=== PATIENT | male | born 1985 | race Two or more races ===

== ENCOUNTER 2018-07-29 13:37 | Emergency (ER) | payer OTHER, MEDICARE ==
[2018-07-29] MEDS ORDERED: NORMAL SALINE 1000 ML 1,000 ML IV ONE (14:17)
[2018-07-29] MEDS ORDERED: KETOROLAC TROMETHAMINE INJ/PF 30 MG/1 ML SDV IV ONE (14:18)
[2018-07-29] MEDS ORDERED: ONDANSETRON HCL INJ/PF 4 MG/2 ML SDV IV ONE (14:18)
[2018-07-29] MEDS ORDERED: MORPHINE SULFATE 10 MG/ML INJ IV ONE (14:18)
--- NOTE | 2018-07-29 14:21 | ER Document Report ---
ED General - General Chief Complaint: Flank Pain Stated Complaint: FLANK PAIN Time Seen by Provider: 07/29/18 14:13 TRAVEL OUTSIDE OF THE U.S. IN LAST 30 DAYS: No - HPI Notes: Patient is a 32-year-old male that presents to the emergency department for chief complaint of right flank pain. Patient started having pain in his right flank on 07/25/18, after few hours the pain had completely resolved. The pain returned today lower on his right side. He states it is sharp. He denies aggravating or relieving factors. He does have a history of kidney stones and states this feels similar. He reports uri nary frequency but denies dysuria and hematuria. He does also have some associated nausea but denies vomiting. He denies any new injury or trauma. He states the pain is sharp and radiating from his right side into his right lower groin. Past Medical History: PTSD, depression, restless leg syndrome, pseudotumor cerebri Past Surgical History: Reviewed in chart Social History: Vaporized nicotine, denies drug and alcohol use Family History: Reviewed and noncontributory for presenting illness Allergies: Reviewed, see documented allergy list. REVIEW OF SYSTEMS: CONSTITUTIONAL : No fever No chills No diaphoresis No recent illness EENT: No vision changes No congestion No sore throat CARDIOVASCULAR: No chest pain No palpitations RESPIRATORY: No shortness of breath No cough No difficulty breathing GASTROINTESTINAL: abdominal pain nausea No vomiting No diarrhea GENITOURINARY: No dysuria Urinary frequency No hematuria No difficulty urinating MUSCULOSKELETAL: No back pain No leg pain No arm pain SKIN: No rashes No lesions LYMPHATIC: No swollen, enlarged glands. NEUROLOGICAL: No lightheadedness No headache No weakness No paresthesias PSYCHIATRIC: No anxiety No depression PHYSICAL EXAMINATION: Vital signs reviewed, nursing noted reviewed. GENERAL: Well-appearing, well-nourished and in no acute distress. HEAD: Atraumatic, normocephalic. EYES: Eyes appear normal, extraocular movements intact, sclera anicteric, conjunctiva are normal. ENT: nares patent, oropharynx clear without exudates. Moist mucous membranes. NECK: Normal range of motion, supple without lymphadenopathy LUNGS: Breath sounds clear to auscultation bilaterally and equal. No wheezes rales or rhonchi. HEART: Regular rate and rhythm without murmurs ABDOMEN: Right CVA tenderness, soft, nontender, normoactive bowel sounds. No rebound, guarding, or rigidity. No masses appreciated. EXTREMITIES: Nontender, good range of motion, no pitting or edema. NEUROLOGICAL: No focal neurological deficits. Moves all extremities spontaneously Motor and sensory grossly intact on exam. PSYCH: Normal mood, normal affect. SKIN: Warm, Dry, normal turgor, no rashes or lesions noted on exposed skin - Related Data Allergies/Adverse Reactions: trazodone Allergy (Verified 07/29/18 14:13) Past Medical History - Social History Smoking Status: Current Some Day Smoker Family History: Reviewed & Not Pertinent Patient has suicidal ideation: No Patient has homicidal ideation: No - Past Medical History Cardiac Medical History: Reports: Hx Hypertension Neurological Medical History: Reports: Hx Migraine Renal/ Medical History: Denies: Hx Peritoneal Dialysis GI Medical History: Reports: Hx Gastroesophageal Reflux Disease Psychiatric Medical History: Reports: Hx Depression Past Surgical History: Reports: Hx Appendectomy, Hx Oral Surgery - Immunizations Hx Diphtheria, Pertussis, Tetanus Vaccination: Yes Physical Exam - Vital signs Vitals: Temp Pulse Resp BP Pulse Ox 97.2 F 68 20 158/96 H 100 07/29/18 13:39 07/29/18 13:39 07/29/18 13:39 07/29/18 13:39 07/29/18 13:39 Course - Re-evaluation Re-evalutation: 07/29/18 14:20 Vitals reviewed. Nursing notes reviewed. Patient given IV hydration, Toradol, morphine and Zofran for symptomatic management. 07/29/18 16:48 Laboratory 07/29/18 07/29/18 07/29/18 14:50 14:50 16:20 WBC 14.5 H RBC 5.43 Hgb 16.3 Hct 47.0 MCV 87 MCH 30.1 MCHC 34.8 RDW 13.3 Plt Count 267 Seg Neutrophils % 78.4 H Lymphocytes % 13.7 Monocytes % 6.6 Eosinophils % 0.4 Basophils % 0.9 Absolute Neutrophils 11.4 H Absolute Lymphocytes 2.0 Absolute Monocytes 1.0 Absolute Eosinophils 0.1 Absolute Basophils 0.1 Sodium 142.5 Potassium 4.1 Chloride 106 Carbon Dioxide 26 Anion Gap 11 BUN 11 Creatinine 0.91 Est GFR ( Amer) > 60 Est GFR (Non-Af Amer) > 60 Glucose 114 H Calcium 9.5 Urine Color YELLOW Urine Appearance CLEAR Urine pH 5.0 Ur Specific [place] 1.014 Urine Protein NEGATIVE Urine Glucose (UA) NEGATIVE Urine Ketones NEGATIVE Urine Blood LARGE H Urine Nitrite NEGATIVE Urine Bilirubin NEGATIVE Urine Urobilinogen NEGATIVE Ur Leukocyte Esterase NEGATIVE Urine WBC (Auto) 2 Urine RBC (Auto) 16 U Hyaline Cast (Auto) 1 Squamous Epi Cells Auto <1 Urine Mucus (Auto) MANY Urine Ascorbic Acid 20 H Abdomen/Pelvis CT 07/29/18 14:14 IMPRESSION: Right hydronephrosis and hydroureter secondary to the presence of a 6 mm calculus 2 cm from the right UVJ. Patient workup patient's workup shows a 6 mm ureterolithiasis on the right. He does have some hydronephrosis but has normal renal function. There is no sign of overlying infection. Patient will be given Flomax, urine strainer, naproxen and Percocet. He will follow closely with urology. He will return for new or worsening symptoms. He is stable and improved at discharge. - Vital Signs Vital signs: Temp Pulse Resp BP Pulse Ox 97.2 F 68 20 158/96 H 100 07/29/18 13:39 07/29/18 13:39 07/29/18 13:39 07/29/18 13:39 07/29/18 13:39 - Laboratory Result Diagrams: 07/29/18 14:50 07/29/18 14:50 Laboratory results interpreted by me: 07/29/18 07/29/18 07/29/18 14:50 14:50 16:20 WBC 14.5 H Seg Neutrophils % 78.4 H Absolute Neutrophils 11.4 H Glucose 114 H Urine Blood LARGE H Urine Ascorbic Acid 20 H Discharge - Discharge Clinical Impression: Ureterolithiasis Condition: Stable Disposition: HOME, SELF-CARE Instructions: Kidney Stone ([facility]) Additional Instructions: Please return to the emergency department if you have any worsening, or concern of your symptoms. Please return to the emergency department if you develop chest pain, difficulty breathing, severe abdominal pain, or ongoing vomiting. Please follow-up with your primary care physician in 2-3 days and any other recommended physicians. If prescribed, take all medications as directed. If you have any questions or concerns do not hesitate to return the emergency department for evaluation. Stay well-hydrated Follow with urology for close reevaluation Prescriptions: Naproxen 500 mg PO BID #30 tablet.dr Oxycodone HCl/Acetaminophen [Percocet 5-325 mg Tablet] 1 tab PO Q6 PRN #10 tab PRN Reason: Pain Tamsulosin HCl [Flomax 0.4 mg Cap.sr] 0.4 mg PO DAILY #7 cap.sr.24h Referrals: MARCELLA PARHAM MD [Primary Care Provider] - Follow up as needed [facility] [Provider Group] - Follow up in 3-5 days
[2018-07-29 14:55] LABS: ABSOLUTE BASOPHILS # (AUTO) 0.1 10^3/uL (0.0-0.2); ABSOLUTE EOSINOPHILS # (AUTO) 0.1 10^3/uL (0.0-0.6); ABSOLUTE NEUT (AUTO) 11.4 10^3/uL (1.7-8.2); BASOPHILS % (AUTO) 0.9 % (0-2); EOSINOPHILS % (AUTO) 0.4 % (0-6); HEMOGLOBIN 16.3 g/dL (13.5-17.0); LYMPHOCYTES % (AUTO) 13.7 % (13-45); MEAN CORPUSCULAR HEMOGLOBIN 30.1 pg (27.0-33.4); MEAN CORPUSCULAR HGB CONC 34.8 g/dL (32.0-36.0); MEAN CORPUSCULAR VOLUME 87 fl (80-97); MONOCYTES % (AUTO) 6.6 % (3-13); PLATELET COUNT 267 10^3/uL (150-450); RED BLOOD COUNT 5.43 10^6/uL (4.35-5.55); RED CELL DISTRIBUTION WIDTH 13.3 % (11.5-14.0); SEGMENTED NEUTROPHILS % (AUTO) 78.4 % (42-78); TOTAL CELLS COUNTED % (AUTO) 100 %; WHITE BLOOD COUNT 14.5 10^3/uL (4.0-10.5)
[2018-07-29 15:15] LABS: ANION GAP 11 (5-19); BLOOD UREA NITROGEN 11 mg/dL (7-20); CALCIUM 9.5 mg/dL (8.4-10.2); CARBON DIOXIDE 26 mmol/L (22-30); CHLORIDE 106 mmol/L (98-107); GLUCOSE 114 mg/dL (75-110); POTASSIUM 4.1 mmol/L (3.6-5.0); SODIUM 142.5 mmol/L (137-145)
--- NOTE | 2018-07-29 15:24 | RADIOLOGY REPORT (SQ) ---
EXAM DESCRIPTION: CT ABD/PELVIS NO ORAL OR IV COMPLETED DATE/TIME: 07/29/2018 3:10 pm REASON FOR STUDY: flank pain COMPARISON: 08/18/2010 TECHNIQUE: CT scan of the abdomen and pelvis performed without intravenous or oral contrast. Images reviewed with lung, soft tissue, and bone windows. Reconstructed coronal and sagittal MPR images revi ewed. All images stored on PACS. All CT scanners at this facility use dose modulation, iterative reconstruction, and/or weight based d osing when appropriate to reduce radiation dose to as low as reasonably achievable (ALARA). [facility]: Dose Right [facility]: CareDose [facility]: Dose Right [facility]: Teradose 4D [facility]: [employer] RADIATION DOSE: mGy. LIMITATIONS: None. FINDINGS: LOWER CHEST: No significant findings. No nodules or infiltrates. NON-CONTRASTED LIVER, SPLEEN, ADRENALS: Evaluation limited by lack of IV contrast. No identified sign ificant masses. PANCREAS: No masses. No peripancreatic inflammatory changes. GALLBLADDER: No gallstones. No pericholecystic fluid. RIGHT KIDNEY AND URETER: Right hydronephrosis and hydroureter secondary to a 6 mm calculus in the dis ras ureter about 2 cm from the UVJ. LEFT KIDNEY AND URETER: No suspicious masses. Assessment limited by lack of IV contrast. No signifi cant calcifications. No hydronephrosis or hydroureter. AORTA AND RETROPERITONEUM: No aneurysm. No retroperitoneal masses or adenopathy. BOWEL AND PERITONEAL CAVITY: No obvious masses or inflammatory changes. No free fluid. APPENDIX: Normal. PELVIS, BLADDER, AND ABDOMINAL WALL:No abnormal masses. No free fluid. Bladder normal. BONES: No significant findings. OTHER: No other significant finding. IMPRESSION: Right hydronephrosis and hydroureter secondary to the presence of a 6 mm calculus 2 cm f rom the right UVJ. COMMENT: Quality ID # [id number]: Final reports with documentation of one or more dose reduction techniques (e.g., Automated exposure control, adjustment of the mA and/or kV according to patient size, use of iterative reconstruction technique) TECHNICAL DOCUMENTATION: JOB ID: [id number] [employer]- All Rights Reserved Reading location - IP/workstation name: [email or web address]
[2018-07-29] MEDS ORDERED: TAMSULOSIN HCL 0.4 MG CAP.SR.24H PO ONE (16:39)
[2018-07-29 16:46] LABS: APPEARANCE,URINE CLEAR; BILIRUBIN,URINE NEGATIVE (NEGATIVE); COLOR,URINE YELLOW; GLUCOSE, URINE NEGATIVE (NEGATIVE); KETONES,URINE NEGATIVE (NEGATIVE); LEUKOCYTE ESTERASE,URINE NEGATIVE (NEGATIVE); NITRITE,URINE NEGATIVE (NEGATIVE); PROTEIN,URINE NEGATIVE (NEGATIVE); URINE SPECIFIC GRAVITY 1.014; UROBILINOGEN,URINE NEGATIVE mg/dL (<2.0)
[2018-07-29 17:44] VITALS: BP 128/66
== END 2018-07-29 17:39 | disposition home or self-care (01) ==
LOC: ER 13:37
DX: N13.2 Hydronephrosis with renal and ureteral calculous obstruction (principal); R35.0 Frequency of micturition; R10.9 Unspecified abdominal pain; R11.0 Nausea; I10 Essential (primary) hypertension; F17.200 Nicotine dependence, unspecified, uncomplicated; Z88.8 Allergy status to other drugs, medicaments and biological substances
CPT/HCPCS: 99284; 96361; 96374; 96375; 36415; 85025; 80048; 81001; 74176; J1885; J2270; J2405; J7030

== ENCOUNTER 2018-08-04 11:36 | Emergency (ER) | payer OTHER, MEDICARE ==
[2018-08-04] MEDS ORDERED: ONDANSETRON HCL INJ/PF 4 MG/2 ML SDV IV ONE (11:55)
[2018-08-04] MEDS ORDERED: KETOROLAC TROMETHAMINE INJ/PF 30 MG/1 ML SDV IV ONE (11:55)
[2018-08-04] MEDS ORDERED: NORMAL SALINE 1000 ML 1,000 ML IV ONE (12:18)
--- NOTE | 2018-08-04 12:28 | ER Document Report ---
ED General - General Chief Complaint: Possible Kidney Stone Stated Complaint: FLANK PAIN Time Seen by Provider: 08/04/18 11:44 Notes: Patient is a 32-year-old male with kidney stone history and recent diagnosis of 1 that presents to the emergency department for chief complaint of right flank pain. Patient states that he was diagnosed with a ureteral stone about a week ago, and was doing okay at home, take medications as directed, but the pain flared up and got severe this morning so he decided to come back to the emergency department. He currently rates his pain as a 9 out of 10, describes as constant aching sensation with associated nausea on the right flank radiating towards the groin. He denies having any blood in the urine, or having any dysuria associated with this. He also denies having any fevers, chills, night sweats, chest pain or shortness of breath. Past Medical History: Kidney stones, pseudotumor cerebri, PTSD, restless leg syndrome Past Surgical History: Ureteral stenting, radiofrequency ablation Social History: Denies tobacco use, admits to rare alcohol use, denies illicit drug use. Family History: Reviewed and noncontributory for presenting illness Allergies: Reviewed, see documented allergy list. REVIEW OF SYSTEMS: Other than noted above, the 12 point review of systems was reviewed with the patient and were negative, all pertinent findings are included in the HPI. PHYSICAL EXAMINATION: Vital signs reviewed, nursing noted reviewed. GENERAL: Obese male, appears uncomfortable and in pain on exam, holding his right side HEAD: Atraumatic, normocephalic. EYES: Eyes appear normal, extraocular movements intact, sclera anicteric, conjunctiva are normal. ENT: nares patent, oropharynx clear without exudates. Moist mucous membranes. NECK: Normal range of motion, supple without lymphadenopathy LUNGS: Breath sounds clear to auscultation bilaterally and equal. No wheezes rales or rhonchi. HEART: Regular rate and rhythm without murmurs ABDOMEN: Soft, right CVA tenderness with palpation, normoactive bowel sounds. No rebound, guarding, or rigidity. No masses appreciated. EXTREMITIES: Nontender, good range of motion, no pitting or edema. NEUROLOGICAL: No focal neurological deficits. Moves all extremities spontaneously Motor and sensory grossly intact on exam. PSYCH: Appears uncomfortable, but appropriate. SKIN: Warm, Dry, normal turgor, no rashes or lesions noted on exposed skin TRAVEL OUTSIDE OF THE [place] IN LAST 30 DAYS: No - Related Data Allergies/Adverse Reactions: trazodone Allergy (Verified 08/04/18 11:37) Past Medical History - Social History Smoking Status: Current Every Day Smoker Frequency of alcohol use: Rare Drug Abuse: None Family History: Reviewed & Not Pertinent Patient has suicidal ideation: No Patient has homicidal ideation: No - Past Medical History Cardiac Medical History: Reports: Hx Hypertension Neurological Medical History: Reports: Hx Migraine Renal/ Medical History: Reports: Hx Kidney Stones. Denies: Hx Peritoneal Dialysis GI Medical History: Reports: Hx Gastroesophageal Reflux Disease Psychiatric Medical History: Reports: Hx Depression Past Surgical History: Reports: Hx Appendectomy, Hx Oral Surgery - Immunizations Hx Diphtheria, Pertussis, Tetanus Vaccination: Yes Physical Exam - Vital signs Vitals: Temp Pulse Resp BP Pulse Ox 98.0 F 76 18 140/70 H 99 08/04/18 11:41 08/04/18 11:41 08/04/18 11:41 08/04/18 11:41 08/04/18 11:41 Course - Re-evaluation Re-evalutation: Patient seen and examined vital signs reviewed. Laboratory data and imaging were ordered as appropriate for the patient's presenting symptoms and complaint, with consideration of any critical or life threatening conditions that may be associated with their obtained history and exam as noted above. Patient was treated with IV fluids, Toradol, morphine and Zofran Results were reviewed when available and demonstrated ureteral stone, at the UVJ, extending into the bladder, about to enter the bladder, with mild and unchanged hydroureter and hydronephrosis, renal function normal, UA negative for evidence of infection, hematuria present. The patient was re-evaluated and was still uncomfortable, he is given a dose of 1 mg of Dilaudid, to help assist further with his pain, will discharge the patient home and have him follow-up with urology, additionally advised to take previously prescribed Flomax, he was given a dose in the ED. Evaluation was most consistent with right ureteral stone, hematuria, hydronephrosis Results were discussed with the patient at this point, after careful consideration I feel that that patient can be discharged from the emergency department, the patient was educated treatments and reasons to return to the emergency department based on their presumed diagnosis as noted above, they were advised to followup with a primary care physician in 2-3 days. Patient was agreeable to plan of care. *Note is created using voice recognition software and may contain spelling, syntax or grammatical errors. Laboratory 08/04/18 08/04/18 08/04/18 12:30 12:45 12:45 WBC 12.9 H RBC 4.88 Hgb 14.9 Hct 42.5 MCV 87 MCH 30.6 MCHC 35.1 RDW 13.7 Plt Count 266 Seg Neutrophils % 77.1 Lymphocytes % 13.8 Monocytes % 8.3 Eosinophils % 0.4 Basophils % 0.4 Absolute Neutrophils 10.0 H Absolute Lymphocytes 1.8 Absolute Monocytes 1.1 Absolute Eosinophils 0.1 Absolute Basophils 0.1 Sodium 139.6 Potassium 4.5 Chloride 105 Carbon Dioxide 25 Anion Gap 10 BUN 15 Creatinine 0.91 Est GFR ( Amer) > 60 Est GFR (Non-Af Amer) > 60 Glucose 89 Calcium 9.8 Urine Color STRAW Urine Appearance CLEAR Urine pH 6.0 Ur Specific [place] 1.012 Urine Protein NEGATIVE Urine Glucose (UA) NEGATIVE Urine Ketones NEGATIVE Urine Blood MODERATE H Urine Nitrite NEGATIVE Urine Bilirubin NEGATIVE Urine Urobilinogen NEGATIVE Ur Leukocyte Esterase NEGATIVE Urine WBC (Auto) 0 Urine RBC (Auto) 47 Urine Mucus (Auto) RARE Urine Ascorbic Acid NEGATIVE Abdomen/Pelvis CT 08/04/18 11:55 IMPRESSION: Redemonstrated 6 mm calculus which is distally migrated compared to prior examination, now just at the ostium of the ureter at the ureterovesicular junction, with unchanged mild associated right hydronephrosis and hydroureter. - Vital Signs Vital signs: Temp Pulse Resp BP Pulse Ox 98.0 F 76 18 140/70 H 99 08/04/18 11:41 08/04/18 11:41 08/04/18 11:41 08/04/18 11:41 08/04/18 11:41 - Laboratory Result Diagrams: 08/04/18 12:45 08/04/18 12:45 Laboratory results interpreted by me: 08/04/18 08/04/18 12:30 12:45 WBC 12.9 H Absolute Neutrophils 10.0 H Urine Blood MODERATE H Discharge - Discharge Clinical Impression: Ureteral stone Hematuria Qualifiers: Hematuria type: unspecified type Qualified Code(s): R31.9 - Hematuria, unspecified Hydronephrosis Qualifiers: Hydronephrosis type: with ureteral calculous obstruction Qualified Code(s): N13.2 - Hydronephrosis with renal and ureteral calculous obstruction Condition: Stable Disposition: HOME, SELF-CARE Instructions: Kidney Stone ([facility]) Additional Instructions: Please follow-up with your urologist, if you are not able to get into see them, I provided a list of urologists in the area that you can call. Please take the Flomax even previously prescribed, daily, and only take the pain pill as needed every 8 hours for breakthrough type pain, otherwise you should take [id number] Motrin 600 mg 3 times daily, if you have nausea you can take the Zofran that was prescribed. [email or web address] [address] [email or web address] [facility] Kory De La Rosa [facility] [email or web address] [facility] Prescriptions: Ondansetron [Zofran Odt 4 mg Tablet] 1 tab PO Q8H PRN #15 tab.rapdis PRN Reason: For Nausea/Vomiting Oxycodone HCl/Acetaminophen [Percocet 5-325 mg Tablet] 1 tab PO Q8H PRN #15 tab PRN Reason: right flank pain Referrals: MARCELLA PARHAM MD [RN DERMATOLOGY] - Follow up in 3-5 days
[2018-08-04] MEDS ORDERED: MORPHINE SULFATE 10 MG/ML INJ IV ONE (12:30)
--- NOTE | 2018-08-04 12:43 | RADIOLOGY REPORT (SQ) ---
EXAM DESCRIPTION: CT ABD/PELVIS NO ORAL OR IV COMPLETED DATE/TIME: 08/04/2018 12:18 pm REASON FOR STUDY: right side nephrolithiasis COMPARISON: 07/29/2018 TECHNIQUE: CT scan of the abdomen and pelvis performed without intravenous or oral contrast. Images reviewed with lung, soft tissue, and bone windows. Reconstructed coronal and sagittal MPR images revi ewed. All images stored on PACS. All CT scanners at this facility use dose modulation, iterative reconstruction, and/or weight based d osing when appropriate to reduce radiation dose to as low as reasonably achievable (ALARA). [facility]: Dose Right [facility]: CareDose [facility]: Dose Right [facility]: Teradose 4D [facility]: [employer] RADIATION DOSE: CT Rad equipment meets quality standard of care and radiation dose reduction techniq ues were employed. CTDIvol: 20.4 mGy. DLP: 1126 mGy-cm.mGy. LIMITATIONS: None. FINDINGS: LOWER CHEST: No significant findings. No nodules or infiltrates. NON-CONTRASTED LIVER, SPLEEN, ADRENALS: Evaluation limited by lack of IV contrast. No identified sign ificant masses. PANCREAS: No masses. No peripancreatic inflammatory changes. GALLBLADDER: No identified stones by CT criteria. No inflammatory changes to suggest cholecystitis. RIGHT KIDNEY AND URETER: No suspicious masses. Assessment limited by lack of IV contrast. Redemonst rated 6 mm calculus which is distally migrated compared to prior examination, now just at the ostium of the ureter at the ureterovesicular junction, with unchanged mild associated right hydronephrosis a nd hydroureter. LEFT KIDNEY AND URETER: No suspicious masses. Assessment limited by lack of IV contrast. No signifi cant calcifications. No hydronephrosis or hydroureter. AORTA AND RETROPERITONEUM: No aneurysm. No retroperitoneal masses or adenopathy. BOWEL AND PERITONEAL CAVITY: No obvious masses or inflammatory changes. No free fluid. APPENDIX: Normal. PELVIS, BLADDER, AND ABDOMINAL WALL:No abnormal masses. No free fluid. Bladder normal. BONES: No significant findings. OTHER: No other significant finding. IMPRESSION: Redemonstrated 6 mm calculus which is distally migrated compared to prior examination, n ow just at the ostium of the ureter at the ureterovesicular junction, with unchanged mild associated right hydronephrosis and hydroureter. COMMENT: Quality ID # [id number]: Final reports with documentation of one or more dose reduction techniques (e.g., Automated exposure control, adjustment of the mA and/or kV according to patient size, use of iterative reconstruction technique) TECHNICAL DOCUMENTATION: JOB ID: [id number] [employer]- All Rights Reserved Reading location - IP/workstation name: [email or web address]
[2018-08-04] MEDS ORDERED: TAMSULOSIN HCL 0.4 MG CAP.SR.24H PO ONE (12:49)
[2018-08-04 13:01] LABS: ABSOLUTE BASOPHILS # (AUTO) 0.1 10^3/uL (0.0-0.2); ABSOLUTE EOSINOPHILS # (AUTO) 0.1 10^3/uL (0.0-0.6); ABSOLUTE LYMPHOCYTES (AUTO) 1.8 10^3/uL (0.5-4.7); ABSOLUTE MONOCYTES (AUTO) 1.1 10^3/uL (0.1-1.4); BASOPHILS % (AUTO) 0.4 % (0-2); EOSINOPHILS % (AUTO) 0.4 % (0-6); HEMATOCRIT 42.5 % (37.9-51.0); HEMOGLOBIN 14.9 g/dL (13.5-17.0); LYMPHOCYTES % (AUTO) 13.8 % (13-45); MEAN CORPUSCULAR HEMOGLOBIN 30.6 pg (27.0-33.4); MEAN CORPUSCULAR HGB CONC 35.1 g/dL (32.0-36.0); MEAN CORPUSCULAR VOLUME 87 fl (80-97); MONOCYTES % (AUTO) 8.3 % (3-13); PLATELET COUNT 266 10^3/uL (150-450); RED BLOOD COUNT 4.88 10^6/uL (4.35-5.55); RED CELL DISTRIBUTION WIDTH 13.7 % (11.5-14.0); SEGMENTED NEUTROPHILS % (AUTO) 77.1 % (42-78); TOTAL CELLS COUNTED % (AUTO) 100 %; WHITE BLOOD COUNT 12.9 10^3/uL (4.0-10.5)
[2018-08-04 13:05] LABS: APPEARANCE,URINE CLEAR; BILIRUBIN,URINE NEGATIVE (NEGATIVE); COLOR,URINE STRAW; GLUCOSE, URINE NEGATIVE (NEGATIVE); KETONES,URINE NEGATIVE (NEGATIVE); LEUKOCYTE ESTERASE,URINE NEGATIVE (NEGATIVE); NITRITE,URINE NEGATIVE (NEGATIVE); PROTEIN,URINE NEGATIVE (NEGATIVE); URINE SPECIFIC GRAVITY 1.012; UROBILINOGEN,URINE NEGATIVE mg/dL (<2.0)
--- NOTE | 2018-08-04 13:05 | ER Document Report ---
ED Medical Screen (RME) - General Chief Complaint: Possible Kidney Stone Stated Complaint: FLANK PAIN Time Seen by Provider: 08/04/18 11:44 TRAVEL OUTSIDE OF THE [place] IN LAST 30 DAYS: No - Related Data Allergies/Adverse Reactions: trazodone Allergy (Verified 08/04/18 11:37) Past Medical History - Social History Frequency of alcohol use: Rare Drug Abuse: None - Past Medical History Cardiac Medical History: Reports: Hx Hypertension Neurological Medical History: Reports: Hx Migraine Renal/ Medical History: Reports: Hx Kidney Stones. Denies: Hx Peritoneal Dialysis GI Medical History: Reports: Hx Gastroesophageal Reflux Disease Psychiatric Medical History: Reports: Hx Depression Past Surgical History: Reports: Hx Appendectomy, Hx Oral Surgery - Immunizations Hx Diphtheria, Pertussis, Tetanus Vaccination: Yes Physical Exam - Vital signs Vitals: Temp Pulse Resp BP Pulse Ox 98.0 F 76 18 140/70 H 99 08/04/18 11:41 08/04/18 11:41 08/04/18 11:41 08/04/18 11:41 08/04/18 11:41 Course - Re-evaluation Re-evalutation: 08/04/18 13:04 32-year-old man with history of kidney stones in the past who presents with right-sided pain. We will administer a dose of Toradol, will obtain CT abdomen and pelvis. We will obtain urinalysis and renal function. I have seen and evaluated this patient in rapid medical screening exam fashion. I have initiated a evaluation and workup, this patient will require further investigation evaluation and disposition determination by secondary provider. - Vital Signs Vital signs: Temp Pulse Resp BP Pulse Ox 98.0 F 76 18 140/70 H 99 08/04/18 11:41 08/04/18 11:41 08/04/18 11:41 08/04/18 11:41 08/04/18 11:41 - Laboratory Result Diagrams: 08/04/18 12:45 08/04/18 12:45 Doctor's Discharge - Discharge Referrals: MARCELLA PARHAM MD [[employer]] - Follow up as needed
[2018-08-04 13:24] LABS: ANION GAP 10 (5-19); BLOOD UREA NITROGEN 15 mg/dL (7-20); CALCIUM 9.8 mg/dL (8.4-10.2); CARBON DIOXIDE 25 mmol/L (22-30); CHLORIDE 105 mmol/L (98-107); GLUCOSE 89 mg/dL (75-110); POTASSIUM 4.5 mmol/L (3.6-5.0); SODIUM 139.6 mmol/L (137-145)
[2018-08-04] MEDS ORDERED: HYDROMORPHONE HCL INJ/PF 2 MG/ML AMPULE IV ONE (13:53)
[2018-08-04 15:11] VITALS: BP 135/89
== END 2018-08-04 15:11 | disposition home or self-care (01) ==
LOC: ER 11:36
DX: N13.2 Hydronephrosis with renal and ureteral calculous obstruction (principal); R31.9 Hematuria, unspecified; E66.9 Obesity, unspecified; F17.200 Nicotine dependence, unspecified, uncomplicated; I10 Essential (primary) hypertension; Z88.8 Allergy status to other drugs, medicaments and biological substances
CPT/HCPCS: 99284; 96361; 96374; 96375; 36415; 87086; 85025; 80048; 81001; 74176; J1885; J2270; J1170; J2405; J7030

== ENCOUNTER 2018-08-05 08:54 | Emergency (ER) | payer OTHER, MEDICARE ==
[2018-08-05] MEDS ORDERED: MORPHINE SULFATE 10 MG/ML INJ IM ONE (09:42)
[2018-08-05] MEDS ORDERED: METOCLOPRAMIDE HCL INJ/PF 10 MG/2 ML SDV IM ONE (09:42)
--- NOTE | 2018-08-05 09:44 | ER Document Report ---
ED Medical Screen (RME) - General Chief Complaint: Possible Kidney Stone Stated Complaint: ABDOMINAL PAIN, VOMITING, DIFFICULTY URINATION Time Seen by Provider: 08/05/18 09:37 Notes: RAPID MEDICAL EVALUATION DISCLOSURE I have seen this patient as part of a Rapid Medical Evaluation and, if applicable, placed any initially appropriate orders. The patient will be seen and fully evaluated, including a full history and physical exam, by a provider (in Main ED or Fast Track) when a room becomes available. 32-year-old male recently diagnosed with kidney stone yesterday here with complaints of continued pain nausea vomiting. The pain is in the right lower back radiating around to the front. He has had some hematuria. He has been taking Percocet he was prescribed yesterday but he did not get his Zofran filled and states that he did not want to pay out of pocket so [facility]. He has an appointment with the urologist tomorrow. EXAM CTAB RRR Mild right CVA TTP TRAVEL OUTSIDE OF THE [place] IN LAST 30 DAYS: No - Related Data Allergies/Adverse Reactions: trazodone Allergy (Verified 08/05/18 08:58) Past Medical History - Past Medical History Cardiac Medical History: Reports: Hx Hypertension Neurological Medical History: Reports: Hx Migraine Renal/ Medical History: Reports: Hx Kidney Stones. Denies: Hx Peritoneal Dialysis GI Medical History: Reports: Hx Gastroesophageal Reflux Disease Psychiatric Medical History: Reports: Hx Depression Past Surgical History: Reports: Hx Appendectomy, Hx Oral Surgery - Immunizations Hx Diphtheria, Pertussis, Tetanus Vaccination: Yes Physical Exam - Vital signs Vitals: Temp Pulse Resp BP Pulse Ox 97.8 F 73 20 156/89 H 99 08/05/18 09:07 08/05/18 09:07 08/05/18 09:07 08/05/18 09:07 08/05/18 09:07 Course - Vital Signs Vital signs: Temp Pulse Resp BP Pulse Ox 97.8 F 73 20 156/89 H 99 08/05/18 09:07 08/05/18 09:07 08/05/18 09:07 08/05/18 09:07 08/05/18 09:07
[2018-08-05 10:18] LABS: ABSOLUTE LYMPHOCYTES (AUTO) 1.2 10^3/uL (0.5-4.7); BASOPHILS % (AUTO) 0.2 % (0-2); EOSINOPHILS % (AUTO) 0.1 % (0-6); HEMATOCRIT 44.3 % (37.9-51.0); HEMOGLOBIN 15.5 g/dL (13.5-17.0); LYMPHOCYTES % (AUTO) 7.2 % (13-45); MEAN CORPUSCULAR HEMOGLOBIN 30.1 pg (27.0-33.4); MEAN CORPUSCULAR VOLUME 86 fl (80-97); PLATELET COUNT 243 10^3/uL (150-450); RED BLOOD COUNT 5.15 10^6/uL (4.35-5.55); RED CELL DISTRIBUTION WIDTH 13.3 % (11.5-14.0); SEGMENTED NEUTROPHILS % (AUTO) 86.5 % (42-78); TOTAL CELLS COUNTED % (AUTO) 100 %; WHITE BLOOD COUNT 16.1 10^3/uL (4.0-10.5)
[2018-08-05 10:27] LABS: APPEARANCE,URINE CLEAR; BILIRUBIN,URINE NEGATIVE (NEGATIVE); COLOR,URINE YELLOW; GLUCOSE, URINE NEGATIVE (NEGATIVE); KETONES,URINE NEGATIVE (NEGATIVE); LEUKOCYTE ESTERASE,URINE NEGATIVE (NEGATIVE); NITRITE,URINE NEGATIVE (NEGATIVE); PROTEIN,URINE 30 mg/dL (NEGATIVE); URINE SPECIFIC GRAVITY 1.014; UROBILINOGEN,URINE NEGATIVE mg/dL (<2.0)
[2018-08-05] MEDS ORDERED: MORPHINE SULFATE 10 MG/ML INJ IV ONE (10:39)
[2018-08-05] MEDS ORDERED: NORMAL SALINE 1000 ML 1,000 ML IV ONE ×2 (10:39→11:34)
[2018-08-05] MEDS ORDERED: KETOROLAC TROMETHAMINE INJ/PF 30 MG/1 ML SDV IV ONE (10:39)
[2018-08-05 10:42] LABS: ALANINE AMINOTRANSFERASE 29 U/L (21-72); ALBUMIN 4.2 g/dL (3.5-5.0); ALKALINE PHOSPHATASE 78 U/L (38-126); ANION GAP 9 (5-19); ASPARTATE AMINO TRANSFERASE 24 U/L (17-59); BILIRUBIN,DIRECT 0.3 mg/dL (0.0-0.4); BILIRUBIN,TOTAL 0.8 mg/dL (0.2-1.3); BLOOD UREA NITROGEN 13 mg/dL (7-20); CARBON DIOXIDE 24 mmol/L (22-30); CHLORIDE 106 mmol/L (98-107); GLUCOSE 132 mg/dL (75-110); POTASSIUM 4.5 mmol/L (3.6-5.0); SODIUM 138.7 mmol/L (137-145); TOTAL PROTEIN 7.5 g/dL (6.3-8.2)
--- NOTE | 2018-08-05 10:46 | ER Document Report ---
ED GI/ - General Mode of Arrival: Ambulatory Information source: Patient TRAVEL OUTSIDE OF THE U.S. IN LAST 30 DAYS: No <VITALY TERRAZAS - Last Filed: 08/05/18 11:29> <SANGEETA QUAN - Last Filed: 08/05/18 14:30> - General Chief Complaint: Possible Kidney Stone Stated Complaint: ABDOMINAL PAIN, VOMITING, DIFFICULTY URINATION Time Seen by Provider: 08/05/18 09:37 Notes: 32-year-old male who presents to the emergency department today with complaints of right flank and right lower quadrant abdominal pain. Patient was diagnosed with a kidney stone on 07/29/2018 and was seen here again yesterday for increasing pain and not passing the stone. Patient states he has an appointment with the urologist tomorrow. Patient was given x7 days worth of flomax on 07/29 so he ran out yesterday. Patient has had intermittent vomiting since being diagnosed with the kidney stone. (VITALY TERRAZAS) - Related Data Allergies/Adverse Reactions: trazodone Allergy (Verified 08/05/18 08:58) Past Medical History - General Information source: Patient - Social History Smoking Status: Never Smoker Cigarette use (# per day): No Chew tobacco use (# tins/day): No Frequency of alcohol use: None Drug Abuse: None Lives with: Family Family History: Reviewed & Not Pertinent Patient has suicidal ideation: No Patient has homicidal ideation: No - Past Medical History Cardiac Medical History: Reports: Hx Hypertension Neurological Medical History: Reports: Hx Migraine Renal/ Medical History: Reports: Hx Kidney Stones GI Medical History: Reports: Hx Gastroesophageal Reflux Disease Psychiatric Medical History: Reports: Hx Depression Past Surgical History: Reports: Hx Appendectomy, Hx Oral Surgery - Immunizations Hx Diphtheria, Pertussis, Tetanus Vaccination: Yes <VITALY TERRAZAS - Last Filed: 08/05/18 11:29> Review of Systems - Review of Systems Constitutional: No symptoms reported EENT: No symptoms reported Cardiovascular: No symptoms reported Respiratory: No symptoms reported Gastrointestinal: See HPI, Abdominal pain - RLQ, Vomiting Genitourinary: See HPI, Flank pain - Right Male Genitourinary: denies: Testicular pain Musculoskeletal: No symptoms reported Skin: No symptoms reported Hematologic/Lymphatic: No symptoms reported Neurological/Psychological: No symptoms reported -: Yes All other systems reviewed and negative <VITALY TERRAZAS - Last Filed: 08/05/18 11:29> Physical Exam <VITALY TERRAZAS - Last Filed: 08/05/18 11:29> - Vital signs Vitals: Temp Pulse Resp BP Pulse Ox 97.8 F 73 20 156/89 H 99 08/05/18 09:07 08/05/18 09:07 08/05/18 09:07 08/05/18 09:07 08/05/18 09:07 - Notes Notes: Physical Exam: General: Alert, appears well. HEENT: Normocephalic. Atraumatic. PERRL. Extraocular movements intact. Orop harynx clear. Neck: Supple. Non-tender. Respiratory: No respiratory distress. Clear and equal breath sounds bilaterally. Cardiovascular: Regular rate and rhythm. Abdominal: Obese. RLQ tenderness with palpation. No distension. Normal Bowel Sounds. Back: Right flank/CVA tenderness with percussion. No deformity or step off. Extremities: Moves all four extremities. Upper extremities: Normal inspection. Normal ROM. Lower extremities: Normal inspection. No edema. Normal ROM. Neurological: Normal cognition. AAOx4. Normal speech. Psychological: Normal affect. Normal Mood. Skin: Warm. Dry. Normal color. (MKVITALY) Course - Laboratory Result Diagrams: 08/05/18 10:09 08/05/18 10:09 <VITALY TERRAZAS - Last Filed: 08/05/18 11:29> - Laboratory Result Diagrams: 08/05/18 10:09 08/05/18 10:09 <SANGEETA QUAN - Last Filed: 08/05/18 14:30> - Re-evaluation Re-evalutation: 08/05/18 14:25 Patient's creatinine was 0.91 yesterday and is 1.28 today, he was given 2 L of IV fluids for this despite his reporting that he drinks lots of water all the time. At this time the patient states he feels considerably better than earlier and feels comfortable going home. He will be given a dose of Flomax and a prescription for Flomax. He does have an appointment with his urologist tomorrow. (SANGEETA QUAN) - Vital Signs Vital signs: Temp Pulse Resp BP Pulse Ox 97.8 F 73 20 156/89 H 99 08/05/18 09:07 08/05/18 09:07 08/05/18 09:07 08/05/18 09:07 08/05/18 09:07 - Laboratory Laboratory results interpreted by me: 08/05/18 08/05/18 08/05/18 10:09 10:09 10:09 WBC 16.1 H Seg Neutrophils % 86.5 H Lymphocytes % 7.2 L Absolute Neutrophils 14.0 H Creatinine 1.28 H Glucose 132 H Urine Protein 30 H Urine Blood SMALL H Discharge <VITALY TERRAZAS - Last Filed: 08/05/18 11:29> <SANGEETA QUAN - Last Filed: 08/05/18 14:30> - Discharge Clinical Impression: Ureteral calculus, right Condition: Stable Disposition: HOME, SELF-CARE Additional Instructions: Kidney Stone You are passing a kidney stone. These stones are usually due to increased calcium or uric acid concentrations in your urine. Stones within the kidney itself are not painful. The pain occurs as the stone leaves the kidney to pass down the long tube, called the ureter, leading to the bladder. If the stone is small, it will usually pass by itself. Most patients can pass the stone at home. You will usually receive medications for pain, nausea or vomiting, and sometimes a medication to assist in passing the kidney stone. However, if the pain is very severe or if vomiting prevents you from taking oral pain medications, you may need to return for further treatment. Drink three or four quarts of fluids per day. You will be given pain medication (if needed) and urine strainers. Strain all your urine to see if the stone passes. If your doctor has asked you to bring the stone in for analysis, return with the stone once it has passed. Return if pain or vomiting become severe, if you develop a high fever, if you are unable to pass your urine, or if other unusual symptoms occur. Start taking the Flomax tomorrow, you were given a dose today in the emergency room. Be sure to drink plenty of fluids throughout the day in the evening. Follow-up with your urology appointment tomorrow as planned. RETURN TO THE EMERGENCY ROOM IF ANY NEW OR WORSENING SYMPTOMS. Prescriptions: Tamsulosin HCl [Flomax 0.4 mg Cap.sr] 0.4 mg PO DAILY #7 cap.sr.24h Referrals: [facility], [facility] [Provider Group] - Follow up tomorrow Scribe Attestation: 08/05/18 11:35 I personally performed the services described in the documentation, reviewed and edited the documentation which was dictated to the scribe in my presence, and it accurately records my words and actions. (SANGEETA QUAN) Scribe Documentation - Scribe Written by Scribe:: Guillermo Perla, 08/05/2018 1135 acting as scribe for :: Rosaura <VITALY TERRAZAS - Last Filed: 08/05/18 11:29>
[2018-08-05] MEDS ORDERED: ONDANSETRON HCL INJ/PF 4 MG/2 ML SDV IV ONE (12:59)
[2018-08-05] MEDS ORDERED: TAMSULOSIN HCL 0.4 MG CAP.SR.24H PO ONE (14:24)
[2018-08-05 14:46] VITALS: BP 145/82
== END 2018-08-05 14:50 | disposition home or self-care (01) ==
LOC: ER 08:54
DX: N20.1 Calculus of ureter (principal); R10.9 Unspecified abdominal pain; R11.10 Vomiting, unspecified; R10.31 Right lower quadrant pain; I10 Essential (primary) hypertension
CPT/HCPCS: 99284; 96372; 96361; 96374; 96375; 36415; 85025; 80053; 81001; J1885; J2765; J2270; J2405; J7030

== ENCOUNTER 2019-07-01 02:39 | Emergency (ER) | payer OTHER, MEDICARE ==
[2019-07-01] MEDS ORDERED: TAMSULOSIN HCL 0.4 MG CAP.SR.24H PO ONE (03:20)
--- NOTE | 2019-07-01 03:24 | ER Document Report ---
ED General - General Chief Complaint: Possible Kidney Stone Stated Complaint: FLANK PAIN Time Seen by Provider: 07/01/19 02:51 TRAVEL OUTSIDE OF THE [place].S. IN LAST 30 DAYS: No - Related Data Allergies/Adverse Reactions: trazodone Allergy (Verified 08/05/18 08:58) Home Medications: Acetazolamide 250 mg qhs, ropinirole 4 mg @ hs, divalproex 500 mg qhs Past Medical History - Social History Smoking Status: Current Some Day Smoker Family History: Reviewed & Not Pertinent Patient has suicidal ideation: No Patient has homicidal ideation: No - Past Medical History Cardiac Medical History: Reports: Hx Hypertension Neurological Medical History: Reports: Hx Migraine Renal/ Medical History: Reports: Hx Kidney Stones. Denies: Hx Peritoneal Dialysis GI Medical History: Reports: Hx Gastroesophageal Reflux Disease Psychiatric Medical History: Reports: Hx Depression Past Surgical History: Reports: Hx Appendectomy, Hx Oral Surgery - Immunizations Hx Diphtheria, Pertussis, Tetanus Vaccination: Yes Physical Exam - Vital signs Vitals: Temp Pulse Resp BP Pulse Ox 98.6 F 68 16 126/72 H 100 07/01/19 02:46 07/01/19 02:46 07/01/19 02:46 07/01/19 02:46 07/01/19 02:46 - Notes Notes: Patient brought in by paramedics with complaint of left flank pain is been gone for the past 3 days. Got progressively worse tonight. Nonradiating. She does have some nausea no vomiting or fevers and no urinary symptoms. Says the pain is like his previous kidney stones patient was given ketorolac and Zofran in the field his pain is improved Please medical history is significant for pseudotumor cerebri and kidney stones. Last stone was last fall and had a stent laced by urologist in [place] social history occasional smoking and occasional alcohol Review of systems pertinent positives and negatives in HPI otherwise all the systems were reviewed and acutely negative PHYSICIAN EXAM -vital signs are noted triage note and note from triage reviewed GENERAL: Well-appearing, well-nourished and in _mild distress HEAD: Atraumatic, normocephalic. EYES: Pupils equal round and reactive to light, extraocular movements intact, sclera anicteric, conjunctiva are normal. ENT: nares patent, oropharynx clear without exudates. Moist mucous membranes. NECK: supple without lymphadenopathy LUNGS: Breath sounds clear to auscultation bilaterally and equal. No wheezes rales or rhonchi. HEART: Regular rate and rhythm without murmurs ABDOMEN: Soft, nontender, normoactive bowel sounds. There is no pulsatile masses EXTREMITIES: No deformity, no edema. NEUROLOGICAL: No focal neurological deficits. Moves all extremities spontaneously and on command. Motor strength is 5/5 in the lower extremities and no pain with straight leg raise PSYCH: Normal mood, normal affect. SKIN: Warm, Dry, normal turgor, no rashes or lesions noted. BACK-nontender in the midline no pain with sitting and no CVA tenderness Differential diagnosis includes renal colic UTI Course - Re-evaluation Re-evalutation: 07/01/19 06:01 ED patient had increasing pain and was given Dilaudid. Because of elevated white count he was given a gram of Rocephin CT is pending at this time he was noted to have a slight metabolic acidosis anion gap probably related to his Aceta Sulamyd plan at this point is to have dr stark f/u on ct - Vital Signs Vital signs: Temp Pulse Resp BP Pulse Ox 98.6 F 68 16 126/72 H 100 07/01/19 02:46 07/01/19 02:46 07/01/19 02:46 07/01/19 02:46 07/01/19 02:46 - Laboratory Result Diagrams: 07/01/19 04:05 07/01/19 04:05 Laboratory results interpreted by me: 07/01/19 07/01/19 04:05 04:05 WBC 18.3 H Lymph % (Auto) 11.1 L Absolute Neuts (auto) 14.8 H Seg Neutrophils % 81.2 H Chloride 111 H Carbon Dioxide 18 L Glucose 120 H Discharge - Discharge Clinical Impression: Renal colic on left side Disposition: OTHER
[2019-07-01] MEDS ORDERED: HYDROMORPHONE HCL INJ/PF 2 MG/ML AMPULE IV ONE (03:57)
[2019-07-01 04:28] LABS: ABSOLUTE BASOPHILS # (AUTO) 0.1 10^3/uL (0.0-0.2); ABSOLUTE MONOCYTES (AUTO) 1.3 10^3/uL (0.1-1.4); ABSOLUTE NEUT (AUTO) 14.8 10^3/uL (1.7-8.2); BASOPHILS % (AUTO) 0.3 % (0-2); EOSINOPHILS % (AUTO) 0.1 % (0-6); HEMATOCRIT 44.7 % (37.9-51.0); HEMOGLOBIN 15.4 g/dL (13.5-17.0); LYMPHOCYTES % (AUTO) 11.1 % (13-45); MEAN CORPUSCULAR HEMOGLOBIN 31.9 pg (27.0-33.4); MEAN CORPUSCULAR HGB CONC 34.4 g/dL (32.0-36.0); MEAN CORPUSCULAR VOLUME 93 fl (80-97); MONOCYTES % (AUTO) 7.3 % (3-13); PLATELET COUNT 193 10^3/uL (150-450); RED BLOOD COUNT 4.83 10^6/uL (4.35-5.55); SEGMENTED NEUTROPHILS % (AUTO) 81.2 % (42-78); TOTAL CELLS COUNTED % (AUTO) 100 %; WHITE BLOOD COUNT 18.3 10^3/uL (4.0-10.5)
[2019-07-01 04:49] LABS: ANION GAP 14 (5-19); BLOOD UREA NITROGEN 13 mg/dL (7-20); CALCIUM 9.7 mg/dL (8.4-10.2); CARBON DIOXIDE 18 mmol/L (22-30); CHLORIDE 111 mmol/L (98-107); GLUCOSE 120 mg/dL (75-110); POTASSIUM 4.3 mmol/L (3.6-5.0)
[2019-07-01] MEDS ORDERED: CEFTRIAXONE INJ 1000 MG VIAL IV ONE (06:00)
--- NOTE | 2019-07-01 06:14 | RADIOLOGY REPORT (SQ) ---
EXAM DESCRIPTION: CT ABDOMEN PELVIS WITHOUT IV CONTRAST COMPLETED DATE/TME: 07/01/2019 03:35 CLINICAL HISTORY: 33 years, Male, Left flank pain COMPARISON: 08/04/2018 TECHNIQUE: Axial CT images of the abdomen and pelvis were obtained without contrast. Sagittal and coronal reformats were performed. DLP 1110 Images stored on PACS. All CT scanners at this facility use dose modulation, iterative reconstruction, and/or weight based dosing when appropriate to reduce radiation dose to as low as reasonably achievable (ALARA). [facility]: Dose Right [facility]: CareDose [facility]: Dose Right [facility]: Teradose 4D [facility]: Smart [employer] LIMITATIONS: None. FINDINGS: The lung bases are clear. There is fatty infiltration of the liver. The gallbladder, pancreas, spleen, and adrenal glands are unremarkable. There is a 3 mm nonobstructing stone along the upper pole of the right kidney. There is a 6 mm stone within the proximal left ureter causing mild hydroureter and hydronephrosis. There is no intraperitoneal free air or fluid. There is no lymphadenopathy. The abdominal aorta is normal in caliber. The stomach and small bowel are unremarkable. The appendix is not uniquely identified, however there are no pericecal inflammatory changes. The colon appears unremarkable. The urinary bladder and prostate gland are unremarkable. There are no lytic or blastic bone lesions. IMPRESSION: 6 mm stone within the proximal left ureter causing mild hydroureter and hydronephrosis. Nonobstructing right-sided nephrolithiasis. Fatty liver. TECHNICAL DOCUMENTATION: Quality ID # 436: Final reports with documentation of one or more dose reduction techniques (e.g., Automated exposure control, adjustment of the mA and/or kV according to patient size, use of iterative reconstruction technique) copyright 2011 [employer]- All Rights Reserved
[2019-07-01 06:26] LABS: APPEARANCE,URINE CLOUDY; BILIRUBIN,URINE NEGATIVE (NEGATIVE); COLOR,URINE YELLOW; GLUCOSE, URINE NEGATIVE (NEGATIVE); KETONES,URINE TRACE mg/dL (NEGATIVE); LEUKOCYTE ESTERASE,URINE NEGATIVE (NEGATIVE); NITRITE,URINE NEGATIVE (NEGATIVE); PROTEIN,URINE 30 mg/dL (NEGATIVE); URINE SPECIFIC GRAVITY 1.023; UROBILINOGEN,URINE NEGATIVE mg/dL (<2.0)
[2019-07-01] MEDS: RINGERS SOLUTION,LACTATED 1,000 ML IV PRN ×2 (06:30→07:42)
[2019-07-01 08:24] VITALS: BP 134/90
== END 2019-07-01 08:24 | disposition home or self-care (01) ==
LOC: ER 02:39
DX: N20.0 Calculus of kidney (principal); F17.200 Nicotine dependence, unspecified, uncomplicated; I10 Essential (primary) hypertension; Z87.442 Personal history of urinary calculi
CPT/HCPCS: 99284; 96375; 96365; 36415; 87086; 85025; 87088; 80048; 81001; 87186; 74176; J1170; J0696; J7120

== ENCOUNTER 2019-07-05 14:03 | Emergency (ER) | payer OTHER, MEDICARE ==
[2019-07-05] MEDS ORDERED: ONDANSETRON HCL INJ/PF 4 MG/2 ML SDV IV ONE (14:24)
[2019-07-05] MEDS ORDERED: KETOROLAC TROMETHAMINE INJ/PF 30 MG/1 ML SDV IV ONE ×2 (14:24→15:00)
[2019-07-05] MEDS ORDERED: MORPHINE SULFATE 10 MG/ML INJ IV ONE ×2 (14:24→17:47)
--- NOTE | 2019-07-05 14:26 | ER Document Report ---
ED Medical Screen (RME) - General Chief Complaint: Possible Kidney Stone Stated Complaint: POSSIBLE KIDNEY STONE Notes: Patient is a 33-year-old male who presents emergency department with a chief complaint of flank pain. Patient reports he was diagnosed with a 6 mm ureteral stone on July 01. Patient reports he was given Flomax, Zofran and Vicodin to go home with but continues to have severe pain. Patient did go to his primary care physician yesterday which is the [place] [facility] who did give him a shot of Toradol and placed a consult for urology. Patient denies fever. Patient reports he is stable to urinate and empty his bladder. Patient reports he is just having worsening left flank pain with nausea and vomiting. Patient reports he vomits about once every 24 hours. TRAVEL OUTSIDE OF THE [place]. IN LAST 30 DAYS: No - Related Data Allergies/Adverse Reactions: trazodone Allergy (Verified 08/05/18 08:58) Past Medical History - Past Medical History Cardiac Medical History: Reports: Hx Hypertension Neurological Medical History: Reports: Hx Migraine Renal/ Medical History: Reports: Hx Kidney Stones. Denies: Hx Peritoneal Dialysis GI Medical History: Reports: Hx Gastroesophageal Reflux Disease Psychiatric Medical History: Reports: Hx Depression Past Surgical History: Reports: Hx Appendectomy, Hx Oral Surgery - Immunizations Hx Diphtheria, Pertussis, Tetanus Vaccination: Yes Physical Exam - Back Back: Normal Notes: + left cva tenderness. Course - Re-evaluation Re-evalutation: 07/05/19 14:26 I have greeted and performed a rapid initial assessment of this patient. A comprehensive ED assessment and evaluation of the patient, analysis of test results and completion of the medical decision making process will be conducted by additional ED providers.
[2019-07-05 15:09] LABS: ABSOLUTE BASOPHILS # (AUTO) 0.1 10^3/uL (0.0-0.2); ABSOLUTE EOSINOPHILS # (AUTO) 0.1 10^3/uL (0.0-0.6); ABSOLUTE LYMPHOCYTES (AUTO) 1.6 10^3/uL (0.5-4.7); ABSOLUTE MONOCYTES (AUTO) 1.1 10^3/uL (0.1-1.4); ABSOLUTE NEUT (AUTO) 8.7 10^3/uL (1.7-8.2); BASOPHILS % (AUTO) 0.6 % (0-2); EOSINOPHILS % (AUTO) 0.6 % (0-6); HEMATOCRIT 45.2 % (37.9-51.0); HEMOGLOBIN 15.5 g/dL (13.5-17.0); LYMPHOCYTES % (AUTO) 14.1 % (13-45); MEAN CORPUSCULAR HEMOGLOBIN 31.9 pg (27.0-33.4); MEAN CORPUSCULAR HGB CONC 34.2 g/dL (32.0-36.0); MEAN CORPUSCULAR VOLUME 93 fl (80-97); MONOCYTES % (AUTO) 9.3 % (3-13); PLATELET COUNT 215 10^3/uL (150-450); RED BLOOD COUNT 4.86 10^6/uL (4.35-5.55); RED CELL DISTRIBUTION WIDTH 13.6 % (11.5-14.0); SEGMENTED NEUTROPHILS % (AUTO) 75.4 % (42-78); TOTAL CELLS COUNTED % (AUTO) 100 %; WHITE BLOOD COUNT 11.5 10^3/uL (4.0-10.5)
[2019-07-05] MEDS ORDERED: NORMAL SALINE 1000 ML 1,000 ML IV ONE (15:14)
--- NOTE | 2019-07-05 15:15 | ER Document Report ---
ED General - General Chief Complaint: Possible Kidney Stone Stated Complaint: POSSIBLE KIDNEY STONE Time Seen by Provider: 07/05/19 14:59 TRAVEL OUTSIDE OF THE [place] IN LAST 30 DAYS: No - HPI Notes: Patient is a 33-year-old male with history of mental health disorders and hypertension who presents complaining of left flank pain that is been relatively constant over the past couple days with known 6 mm ureteral stone. He was diagnosed about 4 days ago with the stone. Patient states that he did contact the [place] who is working on getting him an appointment with urology currently. He is able to eat and drink, but does have nausea and vomiting (usually at nighttime). Patient states that he is able to urinate without difficulty and have normal bowel movements. Denies any headache, fever, neck pain, URI, sore throat, chest pain, palpitations, syncope, cough, shortness of breath, wheeze, dyspnea, abdominal pain, diarrhea, urinary retention, dysuria, hematuria, loss of control of bowel or bladder, numbness/tingling, saddle anesthesia, muscle paralysis/weakness, or rash. - Related Data Allergies/Adverse Reactions: trazodone Allergy (Verified 07/05/19 14:45) Past Medical History - Social History Smoking Status: Never Smoker Chew tobacco use (# tins/day): No Drug Abuse: None Family History: Reviewed & Not Pertinent Patient has suicidal ideation: No Patient has homicidal ideation: No - Past Medical History Cardiac Medical History: Reports: Hx Hypertension Neurological Medical History: Reports: Hx Migraine Renal/ Medical History: Reports: Hx Kidney Stones. Denies: Hx Peritoneal Dialysis GI Medical History: Reports: Hx Gastroesophageal Reflux Disease Psychiatric Medical History: Reports: Hx Depression Past Surgical History: Reports: Hx Appendectomy, Hx Oral Surgery - Immunizations Hx Diphtheria, Pertussis, Tetanus Vaccination: Yes Review of Systems - Review of Systems -: Yes All other systems reviewed and negative Physical Exam - Vital signs Vitals: Temp Pulse Resp BP Pulse Ox 97.9 F 68 16 151/101 H 100 07/05/19 14:35 07/05/19 14:35 07/05/19 14:35 07/05/19 14:35 07/05/19 14:35 - Notes Notes: PHYSICAL EXAMINATION: GENERAL: Well-appearing, well-nourished and in no acute distress. HEAD: Atraumatic, normocephalic. EYES: Pupils equal round and reactive to light, extraocular movements intact, sclera anicteric, conjunctiva are normal. ENT: nares patent and without discharge. oropharynx clear without exudates. No tonsilar hypertrophy or erythema. Moist mucous membranes. NECK: Normal range of motion, supple without lymphadenopathy LUNGS: Breath sounds clear to auscultation bilaterally and equal. No wheezes rales or rhonchi. HEART: Regular rate and rhythm without murmurs, rubs, gallops. ABDOMEN: Soft, nontender, nondistended abdomen. No guarding, no rebound. Normal bowel sounds present. + left CVA tenderness. Musculoskeletal: FROM to passive/active. Strength 5+/5. Extremities: No cyanosis, clubbing, or edema b/l. Peripheral pulses 2+. Capillary refill less than 3 seconds. NEUROLOGICAL: Normal speech, normal gait. PSYCH: Normal mood, normal affect. SKIN: Warm, Dry, normal turgor, no rashes or lesions noted. Course - Re-evaluation Re-evalutation: 07/05/19 15:12 During eval of CVA tenderness, pt did not say if it bothered him at all and he reached back, grabbed my thumb, gripped tight and twisted. I had to pull my hand away and I told him that he "cannot do that" and he needs to speak to me if he is had pain and not reach back and do what he did to my thumb/hand. Pt had a very posturing look in his eyes and he started grunting as if he was extremely angry that I said that to him and would not answer anymore of my questions. This was witnessed by nurse Xena who also found him intimidating after I left the room. We will continue work up as usual otherwise. 07/05/19 17:34 I called [facility] to consult with Urology. Waiting for call back from Dr. Powers. 07/05/19 17:[address] Powers. Pt does not need to be transferred at this time. Antibiotics, meds, and f/u in their office next week. Patient is an afebrile, well-hydrated, 33-year-old male who presents to the ED with a 5-6mm ureteral stone to the Lt side that does not appear to have moved very much since dx'd 4 days ago. Vitals are acceptable without any significant tachycardia, tachypnea, or hypoxia. PE is otherwise unremarkable. Labs are acceptable. See UA results, and there are clumps showing up. UC pending. Patient was given morphine, zofran, and toradol which significantly helped with his pain. See CT. No other labs or imaging warranted at this time based on H&P. Patient is tolerating p.o. without difficulties and is nontoxic-appearing. Low suspicion/risk for urosepsis, acute appendicitis, bowel obstruction, acute cholecystitis, perforated diverticulitis, incarcerated hernia, pancreatitis, perforated ulcer, peritonitis, sepsis, testicular torsion, or other systemic emergent condition at this time. Patient is aware that his condition can change from initial presentation and he needs to monitor symptoms closely and seek medical attention if any acute changes. I will send him home with a prescription for zofran, flomax, keflex, and morphine IR. Conservative measures otherwise for symptoms. Recheck with PCM in 2-3 days. Schedule consult with a urologist. Return to the ED with any worsening/concerning symptoms otherwise as reviewed in discharge. Patient is in agreement. - Vital Signs Vital signs: Temp Pulse Resp BP Pulse Ox 97.9 F 68 16 151/101 H 100 07/05/19 14:35 07/05/19 14:35 07/05/19 14:35 07/05/19 14:35 07/05/19 14:35 - Laboratory Result Diagrams: 07/05/19 14:50 07/05/19 14:50 Laboratory results interpreted by me: 07/05/19 07/05/19 07/05/19 14:50 14:50 16:18 WBC 11.5 H Absolute Neuts (auto) 8.7 H Chloride 108 H Creatinine 1.59 H Est GFR (MDRD) Non-Af 50 L Urine Protein 30 H Urine Ketones TRACE H Urine Ascorbic Acid 40 H Discharge - Discharge Clinical Impression: Right ureteral stone Condition: Stable Disposition: HOME, SELF-CARE Additional Instructions: Push fluids (i.e. water, cranberry juice) Proper hygenic technique Keep the skin clean Tylenol/ibuprofen as needed Take medications as directed F/u with your PCM in 2-3 days for a recheck Schedule consult with a Urologist for next week. Return to the ED with any worsening symptoms and/or development of fever, headache, chest pain, palpitations, syncope, shortness of breath, trouble breathing, abdominal pain, n/v/d, blood in stool/urine, loss of control of bowel/bladder, urinary retention, or other worsening symptoms that are concerning to you. Prescriptions: Tamsulosin HCl [Flomax] 0.4 mg PO DAILY #10 cap.er.24h Cephalexin Monohydrate [Keflex 500 mg Capsule] 500 mg PO TID #21 capsule Morphine Sulfate [Morphine Ir 15 Mg Tablet] 15 mg PO TID #12 tablet Ondansetron [Zofran Odt 4 mg Tablet] 1 - 2 tab PO Q4H PRN #15 tab.rapdis PRN Reason: For Nausea/Vomiting Forms: Elevated Blood Pressure Referrals: [facility] [Provider Group] - Follow up in 3-5 days
[2019-07-05 15:40] LABS: ALBUMIN 4.1 g/dL (3.5-5.0); ALKALINE PHOSPHATASE 53 U/L (38-126); ANION GAP 11 (5-19); ASPARTATE AMINO TRANSFERASE 33 U/L (17-59); BILIRUBIN,DIRECT 0.3 mg/dL (0.0-0.4); BILIRUBIN,TOTAL 0.7 mg/dL (0.2-1.3); BLOOD UREA NITROGEN 18 mg/dL (7-20); CALCIUM 9.5 mg/dL (8.4-10.2); CARBON DIOXIDE 24 mmol/L (22-30); CHLORIDE 108 mmol/L (98-107); GLUCOSE 99 mg/dL (75-110); POTASSIUM 4.8 mmol/L (3.6-5.0); TOTAL PROTEIN 7.6 g/dL (6.3-8.2)
--- NOTE | 2019-07-05 15:53 | RADIOLOGY REPORT (SQ) ---
EXAM DESCRIPTION: CT ABD/PELVIS NO ORAL OR IV COMPLETED DATE/TIME: 07/05/2019 3:42 pm REASON FOR STUDY: inc left flank pain, known stone COMPARISON: None. TECHNIQUE: CT scan of the abdomen and pelvis performed without intravenous or oral contrast. Images reviewed with lung, soft tissue, and bone windows. Reconstructed coronal and sagittal MPR images revi ewed. All images stored on PACS. All CT scanners at this facility use dose modulation, iterative reconstruction, and/or weight based d osing when appropriate to reduce radiation dose to as low as reasonably achievable (ALARA). [facility]: Dose Right [facility]: CareDose [facility]: Dose Right [facility]: Teradose 4D [facility]: Smart [employer] RADIATION DOSE: CT Rad equipment meets quality standard of care and radiation dose reduction techniq ues were employed. CTDIvol: 20.7 mGy. DLP: 1066 mGy-cm.mGy. LIMITATIONS: None. FINDINGS: LOWER CHEST: No significant findings. No nodules or infiltrates. NON-CONTRASTED LIVER, SPLEEN, ADRENALS: Evaluation limited by lack of IV contrast. No identified sign ificant masses. PANCREAS: No masses. No peripancreatic inflammatory changes. GALLBLADDER: No identified stones by CT criteria. No inflammatory changes to suggest cholecystitis. RIGHT KIDNEY AND URETER: No suspicious masses. Assessment limited by lack of IV contrast. No signif icant calcifications. No hydronephrosis or hydroureter. LEFT KIDNEY AND URETER: No suspicious masses. Assessment limited by lack of IV contrast. 5 mm stone measuring 740 HU in the left ureter at the level of L4-5. Moderate hydronephrosis. AORTA AND RETROPERITONEUM: No aneurysm. No retroperitoneal masses or adenopathy. BOWEL AND PERITONEAL CAVITY: No obvious masses or inflammatory changes. No free fluid. APPENDIX: Normal. PELVIS, BLADDER, AND ABDOMINAL WALL:No abnormal masses. No free fluid. Bladder normal. BONES: No significant findings. OTHER: No other significant finding. IMPRESSION: 5 mm stone left ureter. No hydronephrosis. COMMENT: Quality ID # [id number]: Final reports with documentation of one or more dose reduction techniques (e.g., Automated exposure control, adjustment of the mA and/or kV according to patient size, use of iterative reconstruction technique) TECHNICAL DOCUMENTATION: JOB ID: [id number] [employer]- All Rights Reserved Reading location - IP[facility]workstation name: [email or web address]
[2019-07-05 17:10] LABS: AMORPHOUS SEDIMENT,URINE TRACE /HPF; APPEARANCE,URINE CLOUDY; BILIRUBIN,URINE NEGATIVE (NEGATIVE); COLOR,URINE YELLOW; GLUCOSE, URINE NEGATIVE (NEGATIVE); KETONES,URINE TRACE mg/dL (NEGATIVE); LEUKOCYTE ESTERASE,URINE NEGATIVE (NEGATIVE); NITRITE,URINE NEGATIVE (NEGATIVE); PROTEIN,URINE 30 mg/dL (NEGATIVE); URINE SPECIFIC GRAVITY 1.017; UROBILINOGEN,URINE NEGATIVE mg/dL (<2.0)
[2019-07-05] MEDS ORDERED: METOCLOPRAMIDE HCL INJ/PF 10 MG/2 ML SDV IV ONE (17:47)
[2019-07-05 18:47] VITALS: BP 126/85
== END 2019-07-05 18:44 | disposition home or self-care (01) ==
LOC: ER 14:03
DX: N20.1 Calculus of ureter (principal); R10.9 Unspecified abdominal pain; I10 Essential (primary) hypertension
CPT/HCPCS: 96376; 99284; 96361; 96374; 96375; 36415; 87086; 85025; 80053; 81001; 74176; J1885; J2765; J2270; J2405; J7030

== ENCOUNTER 2019-09-03 09:52 | Emergency (ER) | payer OTHER, MEDICARE ==
[2019-09-03 10:03] VITALS: BP 159/87
[2019-09-03] MEDS ORDERED: KETOROLAC TROMETHAMINE INJ/PF 30 MG/1 ML SDV IV ONE (10:38)
[2019-09-03] MEDS ORDERED: ONDANSETRON HCL INJ/PF 4 MG/2 ML SDV IV ONE (10:38)
[2019-09-03] MEDS ORDERED: NORMAL SALINE 1000 ML 1,000 ML IV ONE (10:39)
--- NOTE | 2019-09-03 10:41 | ER Document Report ---
ED Medical Screen (RME) - General Chief Complaint: Flank Pain Stated Complaint: FLANK PAIN Time Seen by Provider: 09/03/19 10:37 Mode of Arrival: Wheelchair Information source: Patient Notes: 33-year-old male presented to ED for complaint of left flank pain. States the pain started several days ago but became much worse today it is in the left flank and the right pelvic area he states he did have a kidney stone in end of June beginning of July. He was seen at this hospital and states he had a CT at that time. He is alert oriented respirations regular nonlabored. He is in a lot of pain I have ordered him Toradol Zofran and IV fluids as well as a renal ultrasound. He does smoke black in [place] does not drink alcohol does not use any illicit drugs. TRAVEL OUTSIDE OF THE [place] IN LAST 30 DAYS: No - Related Data Allergies/Adverse Reactions: trazodone Allergy (Verified 07/05/19 14:45) Past Medical History - Past Medical History Cardiac Medical History: Reports: Hx Hypertension Neurological Medical History: Reports: Hx Migraine Renal/ Medical History: Reports: Hx Kidney Stones. Denies: Hx Peritoneal Dialysis GI Medical History: Reports: Hx Gastroesophageal Reflux Disease Psychiatric Medical History: Reports: Hx Depression Past Surgical History: Reports: Hx Appendectomy, Hx Oral Surgery - Immunizations Hx Diphtheria, Pertussis, Tetanus Vaccination: Yes Physical Exam - Vital signs Vitals: Temp Pulse Resp BP Pulse Ox 97.5 F 70 24 H 159/87 H 99 09/03/19 09:57 09/03/19 09:57 09/03/19 09:57 09/03/19 09:57 09/03/19 09:57 Course - Vital Signs Vital signs: Temp Pulse Resp BP Pulse Ox 97.5 F 70 24 H 159/87 H 99 09/03/19 09:57 09/03/19 09:57 09/03/19 09:57 09/03/19 09:57 09/03/19 09:57
[2019-09-03 11:30] LABS: ABSOLUTE BASOPHILS # (AUTO) 0.1 10^3/uL (0.0-0.2); ABSOLUTE EOSINOPHILS # (AUTO) 0.1 10^3/uL (0.0-0.6); ABSOLUTE MONOCYTES (AUTO) 1.6 10^3/uL (0.1-1.4); ABSOLUTE NEUT (AUTO) 14.6 10^3/uL (1.7-8.2); BASOPHILS % (AUTO) 0.4 % (0-2); EOSINOPHILS % (AUTO) 0.5 % (0-6); HEMATOCRIT 47.2 % (37.9-51.0); HEMOGLOBIN 16.5 g/dL (13.5-17.0); MEAN CORPUSCULAR HEMOGLOBIN 32.1 pg (27.0-33.4); MEAN CORPUSCULAR HGB CONC 34.9 g/dL (32.0-36.0); MEAN CORPUSCULAR VOLUME 92 fl (80-97); MONOCYTES % (AUTO) 8.7 % (3-13); PLATELET COUNT 220 10^3/uL (150-450); RED BLOOD COUNT 5.13 10^6/uL (4.35-5.55); RED CELL DISTRIBUTION WIDTH 13.2 % (11.5-14.0); SEGMENTED NEUTROPHILS % (AUTO) 79.4 % (42-78); TOTAL CELLS COUNTED % (AUTO) 100 %; WHITE BLOOD COUNT 18.4 10^3/uL (4.0-10.5)
[2019-09-03 11:50] LABS: ALBUMIN 4.7 g/dL (3.5-5.0); ALKALINE PHOSPHATASE 73 U/L (38-126); ANION GAP 14 (5-19); ASPARTATE AMINO TRANSFERASE 30 U/L (17-59); BILIRUBIN,DIRECT 0.3 mg/dL (0.0-0.4); BILIRUBIN,TOTAL 0.4 mg/dL (0.2-1.3); BLOOD UREA NITROGEN 14 mg/dL (7-20); CARBON DIOXIDE 22 mmol/L (22-30); CHLORIDE 108 mmol/L (98-107); GLUCOSE 112 mg/dL (75-110); POTASSIUM 4.2 mmol/L (3.6-5.0); TOTAL PROTEIN 8.3 g/dL (6.3-8.2)
--- NOTE | 2019-09-03 11:55 | RADIOLOGY REPORT (SQ) ---
EXAM DESCRIPTION: CT ABD/PELVIS NO ORAL OR IV COMPLETED DATE/TIME: 09/03/2019 10:32 am REASON FOR STUDY: left flank pain. History of renal since. Prior appendectomy. COMPARISON: 07/05/2019 TECHNIQUE: CT scan of the abdomen and pelvis performed without intravenous or oral contrast. Images reviewed with lung, soft tissue, and bone windows. Reconstructed coronal and sagittal MPR images revi ewed. All images stored on PACS. All CT scanners at this facility use dose modulation, iterative reconstruction, and/or weight based d osing when appropriate to reduce radiation dose to as low as reasonably achievable (ALARA). [facility]: Dose Right [facility]: CareDose [facility]: Dose Right [facility]: Teradose 4D [facility]: [employer] RADIATION DOSE: CT Rad equipment meets quality standard of care and radiation dose reduction techniq ues were employed. CTDIvol: 18.6 mGy. DLP: 1067 mGy-cm.mGy. LIMITATIONS: None. FINDINGS: LOWER CHEST: No significant findings. No nodules or infiltrates. NON-CONTRASTED LIVER, SPLEEN, ADRENALS: Evaluation limited by lack of IV contrast. No identified sign ificant masses. PANCREAS: No masses. No peripancreatic inflammatory changes. GALLBLADDER: No identified stones by CT criteria. No inflammatory changes to suggest cholecystitis. RIGHT KIDNEY AND URETER: Normal size and position. No suspicious mass. 3 mm nonobstructing right s uperior pole renal calculus unchanged. No ureteral calculus. No hydronephrosis or hydroureter. LEFT KIDNEY AND URETER: Normal size and position. Worsening moderate hydronephrosis and hydroureter. A 5 mm distal ureteral calculus has progressed to the left ureteral vesical junction since previous examination. There is mild surrounding inflammatory change involving the distal ureter. No residu al renal calculi. No perinephric fluid. AORTA AND RETROPERITONEUM: No aneurysm. No retroperitoneal masses or adenopathy. BOWEL AND PERITONEAL CAVITY: No obvious masses or inflammatory changes. No free fluid. APPENDIX: Surgically absent. PELVIS, BLADDER, AND ABDOMINAL WALL:No abnormal masses. No free fluid. Bladder normal. BONES: No significant findings. OTHER: No other significant finding. IMPRESSION: 1. Obstructing 5 mm distal left ureteral calculus is now at the left ureteral vesicle junction. Wors ening moderate left hydronephrosis and hydroureter. 2. Nonobstructing right renal calculus. 1. Interval progression of the left ureteral calculus COMMENT: Quality ID # [id number]: Final reports with documentation of one or more dose reduction techniques (e.g., Automated exposure control, adjustment of the mA and/or kV according to patient size, use of iterative reconstruction technique) TECHNICAL DOCUMENTATION: JOB ID: [id number] [employer]- All Rights Reserved Reading location - IP/workstation name: [email or web address]
[2019-09-03 12:09] LABS: APPEARANCE,URINE TURBID; BILIRUBIN,URINE NEGATIVE (NEGATIVE); COLOR,URINE YELLOW; GLUCOSE, URINE NEGATIVE (NEGATIVE); KETONES,URINE TRACE mg/dL (NEGATIVE); PROTEIN,URINE 30 mg/dL (NEGATIVE); URINE SPECIFIC GRAVITY 1.015; UROBILINOGEN,URINE NEGATIVE mg/dL (<2.0)
--- NOTE | 2019-09-03 12:34 | ER Document Report ---
ED General - General Chief Complaint: Flank Pain Stated Complaint: FLANK PAIN Time Seen by Provider: 09/03/19 10:37 Mode of Arrival: Wheelchair Information source: Patient TRAVEL OUTSIDE OF THE [place] IN LAST 30 DAYS: No - HPI Notes: Patient presents with left flank pain that started this morning. It is severe and radiates into the left anterior abdomen. It is a sharp sensation. Nothing makes it better or worse. He is also been nauseated. This does feel similar to previous kidney stone pain he has had in the past. He feels he is also noted some blood in his urine. - Related Data Allergies/Adverse Reactions: trazodone Allergy (Verified 09/03/19 10:42) Past Medical History - General Information source: Patient - Social History Smoking Status: Current Some Day Smoker Frequency of alcohol use: None Drug Abuse: None Family History: Reviewed & Not Pertinent Patient has suicidal ideation: No Patient has homicidal ideation: No - Past Medical History Cardiac Medical History: Reports: Hx Hypertension Neurological Medical History: Reports: Hx Migraine Renal/ Medical History: Reports: Hx Kidney Stones. Denies: Hx Peritoneal Dialysis GI Medical History: Reports: Hx Gastroesophageal Reflux Disease Psychiatric Medical History: Reports: Hx Depression Past Surgical History: Reports: Hx Appendectomy, Hx Oral Surgery - Immunizations Hx Diphtheria, Pertussis, Tetanus Vaccination: Yes Review of Systems - Review of Systems Constitutional: Chills, Malaise Cardiovascular: denies: Chest pain, Palpitations Respiratory: denies: Cough, Short of breath Gastrointestinal: Abdominal pain, Nausea, Vomiting -: Yes All other systems reviewed and negative Physical Exam - Vital signs Vitals: Temp Pulse Resp BP Pulse Ox 97.5 F 70 24 H 159/87 H 99 09/03/19 09:57 09/03/19 09:57 09/03/19 09:57 09/03/19 09:57 09/03/19 09:57 Interpretation: Normal - General General appearance: Appears well, Alert - HEENT Head: Normocephalic, Atraumatic Eyes: Normal Pupils: PERRL - Respiratory Respiratory status: No respiratory distress Chest status: Nontender Breath sounds: Normal Chest palpation: Normal - Cardiovascular Rhythm: Regular Heart sounds: Normal auscultation Murmur: No - Abdominal Inspection: Normal Distension: No distension Bowel sounds: Normal Tenderness: Nontender Organomegaly: No organomegaly - Back Back: Normal, Nontender - Extremities General upper extremity: Normal inspection, Nontender, Normal color, Normal ROM, Normal temperature General lower extremity: Normal inspection, Nontender, Normal color, Normal ROM, Normal temperature, Normal weight bearing. No: Braxton's sign - Neurological Neuro grossly intact: Yes Cognition: Normal Orientation: AAOx4 [place] Coma Scale Eye Opening: Spontaneous [place] Coma Scale Verbal: Oriented [place] Coma Scale Motor: Obeys Commands [place] Coma Scale Total: 15 Speech: Normal Motor strength normal: LUE, RUE, LLE, RLE Sensory: Normal - Psychological Associated symptoms: Normal affect, Normal mood - Skin Skin Temperature: Warm Skin Moisture: Dry Skin Color: Normal Course - Re-evaluation Re-evalutation: 09/03/19 12:40 Patient presents with flank pain. He has a distal left stone with some hydroureter and hydronephrosis. He does have an elevated white count however he does not have a fever. He has not tachycardic or hypotensive. He is got an equivocal urine. I will give him 1 dose of IV antibiotics here and send him home on oral antibiotics as well as with pain medicine. - Vital Signs Vital signs: Temp Pulse Resp BP Pulse Ox 97.5 F 70 24 H 159/87 H 99 09/03/19 09:57 09/03/19 09:57 09/03/19 09:57 09/03/19 09:57 09/03/19 09:57 - Laboratory Result Diagrams: 09/03/19 11:16 09/03/19 11:16 Laboratory results interpreted by me: 09/03/19 09/03/19 09/03/19 11:16 11:16 11:20 WBC 18.4 H Lymph % (Auto) 11.0 L Absolute Neuts (auto) 14.6 H Absolute Monos (auto) 1.6 H Seg Neutrophils % 79.4 H Chloride 108 H Glucose 112 H Total Protein 8.3 H Urine Protein 30 H Urine Ketones TRACE H Urine Blood LARGE H - Diagnostic Test Radiology reviewed: Image reviewed, Reports reviewed Discharge - Discharge Clinical Impression: Left ureteral stone Condition: Stable Disposition: HOME, SELF-CARE Instructions: Kidney Stone ([facility]) Additional Instructions: Please call Dr. Layne or urologist of your choice as soon as possible. Prescriptions: Cefdinir 300 mg PO BID 7 Days #14 capsule Hydrocodone/Acetaminophen [[place] 5-325 mg Tablet] 1 tab PO Q6 PRN 3 Days #12 tablet PRN Reason: Forms: Return to Work Referrals: RYANNE LAYNE MD [NO LOCAL MD] - Follow up tomorrow
[2019-09-03] MEDS ORDERED: CEFTRIAXONE 1 GM/D5W RTU 1 GM/50 ML RTUPB IV ONE (12:38)
== END 2019-09-03 13:35 | disposition home or self-care (01) ==
LOC: ER 09:52
DX: N20.1 Calculus of ureter (principal); R10.9 Unspecified abdominal pain; R11.0 Nausea; R31.9 Hematuria, unspecified; F17.200 Nicotine dependence, unspecified, uncomplicated; I10 Essential (primary) hypertension
CPT/HCPCS: 99284; 96361; 96375; 96365; 36415; 85025; 80053; 81001; 74176; J1885; J2405; J7030; J0696

== ENCOUNTER 2020-06-07 13:06 | Emergency (ER) | payer OTHER, MEDICARE ==
[2020-06-07] MEDS ORDERED: KETOROLAC TROMETHAMINE INJ/PF 30 MG/1 ML SDV IV ONE (14:35)
[2020-06-07] MEDS ORDERED: NORMAL SALINE 1000 ML 1,000 ML IV ONE (14:35)
--- NOTE | 2020-06-07 14:40 | ER Document Report ---
ED Medical Screen (RME) - General Stated Complaint: FEVER Time Seen by Provider: 06/07/20 14:33 Primary Care Provider: LIDIA BO [Primary Care Provider] - Follow up as needed Mode of Arrival: Ambulatory Information source: Patient Notes: 34-year-old male patient presenting to the emergency department with chief complaint of right flank pain that began last night. Patient reports pain now r adiating down into his groin. He does report a history of kidney stones, states his urine looks very dark. Denies any dysuria, nausea, vomiting, fever or chills. Patient reports this does feel like a kidney stone. Patient appears well, nontoxic, no acute distress noted. I have greeted and performed a rapid initial assessment of this patient. A comprehensive ED assessment and evaluation of the patient, analysis of test results and completion of the medical decision making process will be conducted by additional ED providers. I have specifically instructed the patient or family members with the patient to immediately return to any nursing staff should anything change in the patient's condition or with their chief complaint. TRAVEL OUTSIDE OF THE [place] IN LAST 30 DAYS: No - Related Data Allergies/Adverse Reactions: trazodone Allergy (Verified 09/03/19 10:42) Past Medical History - Past Medical History Cardiac Medical History: Reports: Hx Hypertension Neurological Medical History: Reports: Hx Migraine Renal/ Medical History: Reports: Hx Kidney Stones. Denies: Hx Peritoneal Dialysis GI Medical History: Reports: Hx Gastroesophageal Reflux Disease Psychiatric Medical History: Reports: Hx Depression Past Surgical History: Reports: Hx Appendectomy, Hx Oral Surgery - Immunizations Hx Diphtheria, Pertussis, Tetanus Vaccination: Yes Physical Exam - Vital signs Vitals: Temp Pulse Resp BP Pulse Ox 99.1 F 92 20 155/80 H 100 06/07/20 13:56 06/07/20 13:56 06/07/20 13:56 06/07/20 13:56 06/07/20 13:56 Course - Vital Signs Vital signs: Temp Pulse Resp BP Pulse Ox 99.1 F 92 20 155/80 H 100 06/07/20 13:56 06/07/20 13:56 06/07/20 13:56 06/07/20 13:56 06/07/20 13:56 Doctor's Discharge - Discharge Referrals: ANUPAM,LIDIA [Primary Care Provider] - Follow up as needed
[2020-06-07 15:14] LABS: ABSOLUTE LYMPHOCYTES (AUTO) 2.1 10^3/uL (0.5-4.7); ABSOLUTE MONOCYTES (AUTO) 0.8 10^3/uL (0.1-1.4); ABSOLUTE NEUT (AUTO) 7.7 10^3/uL (1.7-8.2); BASOPHILS % (AUTO) 0.4 % (0-2); EOSINOPHILS % (AUTO) 0.5 % (0-6); HEMATOCRIT 43.5 % (37.9-51.0); HEMOGLOBIN 15.4 g/dL (13.5-17.0); MEAN CORPUSCULAR HEMOGLOBIN 32.7 pg (27.0-33.4); MEAN CORPUSCULAR HGB CONC 35.3 g/dL (32.0-36.0); MEAN CORPUSCULAR VOLUME 93 fl (80-97); MONOCYTES % (AUTO) 7.2 % (3-13); PLATELET COUNT 175 10^3/uL (150-450); RED CELL DISTRIBUTION WIDTH 13.1 % (11.5-14.0); SEGMENTED NEUTROPHILS % (AUTO) 71.9 % (42-78); TOTAL CELLS COUNTED % (AUTO) 100 %; WHITE BLOOD COUNT 10.7 10^3/uL (4.0-10.5)
--- NOTE | 2020-06-07 15:29 | RADIOLOGY REPORT (SQ) ---
EXAM DESCRIPTION: CT ABD/PELVIS NO ORAL OR IV IMAGES COMPLETED DATE/TIME: 06/07/2020 3:10 pm REASON FOR STUDY: R flank pain COMPARISON: None. TECHNIQUE: CT scan of the abdomen and pelvis performed without intravenous or oral contrast. Images reviewed with lung, soft tissue, and bone windows. Reconstructed coronal and sagittal MPR images revi ewed. All images stored on PACS. All CT scanners at this facility use dose modulation, iterative reconstruction, and/or weight based d osing when appropriate to reduce radiation dose to as low as reasonably achievable (ALARA). [facility]: Dose Right [facility]: CareDose [facility]: Dose Right [facility]: Teradose 4D [facility]: Smart [employer] RADIATION DOSE: CT Rad equipment meets quality standard of care and radiation dose reduction techniq ues were employed. CTDIvol: 19.0 mGy. DLP: 1089 mGy-cm. LIMITATIONS: None. FINDINGS: LOWER CHEST: No significant findings. No nodules or infiltrates. NON-CONTRASTED LIVER, SPLEEN, ADRENALS: Fatty liver. Evaluation limited by lack of IV contrast. No identified significant masses. PANCREAS: No masses. No peripancreatic inflammatory changes. GALLBLADDER: No identified stones by CT criteria. No inflammatory changes to suggest cholecystitis. RIGHT KIDNEY AND URETER: A 7- 8 mm calcification in the proximal right ureter, coronal image 54- ser ies 601, results in slight fullness of the right renal collecting system. Small punctate nonobstruct ing calcification in the lower pole of the right kidney. Assessment limited by lack of IV contrast. LEFT KIDNEY AND URETER: No suspicious masses. Assessment limited by lack of IV contrast. No signifi cant calcifications. No hydronephrosis or hydroureter. AORTA AND RETROPERITONEUM: No aneurysm. No retroperitoneal masses or adenopathy. BOWEL AND PERITONEAL CAVITY: No obvious masses or inflammatory changes. No free fluid. APPENDIX: Prior appendectomy. PELVIS, BLADDER, AND ABDOMINAL WALL:No abnormal masses. No free fluid. Bladder normal. BONES: No significant findings. OTHER: Small hiatal hernia. No other significant finding. IMPRESSION: 1. A 7-8 mm calculus in the proximal right ureter results in slight fullness of the claudia al collecting system. 2. Nonobstructing small punctate calculus in the lower pole of the right kidney. 3. Prior appendectomy. 4. Fatty liver. COMMENT: Quality ID # 436: Final reports with documentation of one or more dose reduction techniques (e.g., Automated exposure control, adjustment of the mA and/or kV according to patient size, use of iterative reconstruction technique) TECHNICAL DOCUMENTATION: JOB ID: [id number] 2010 [employer]- All Rights Reserved Reading location - IP/workstation name: [email or web address]
[2020-06-07 15:32] LABS: ALBUMIN 4.2 g/dL (3.5-5.0); ALKALINE PHOSPHATASE 63 U/L (38-126); ANION GAP 13 (5-19); ASPARTATE AMINO TRANSFERASE 25 U/L (17-59); BILIRUBIN,TOTAL 0.2 mg/dL (0.2-1.3); BLOOD UREA NITROGEN 14 mg/dL (7-20); CALCIUM 9.6 mg/dL (8.4-10.2); CARBON DIOXIDE 18 mmol/L (22-30); CHLORIDE 112 mmol/L (98-107); GLUCOSE 155 mg/dL (75-110); POTASSIUM 3.7 mmol/L (3.6-5.0); TOTAL PROTEIN 7.1 g/dL (6.3-8.2)
[2020-06-07 21:09] LABS: APPEARANCE,URINE CLOUDY; BILIRUBIN,URINE NEGATIVE (NEGATIVE); CALCIUM OXALATE CRYSTALS,URINE FEW /HPF; COLOR,URINE AMBER; GLUCOSE, URINE NEGATIVE (NEGATIVE); KETONES,URINE NEGATIVE (NEGATIVE); LEUKOCYTE ESTERASE,URINE TRACE (NEGATIVE); NITRITE,URINE NEGATIVE (NEGATIVE); PROTEIN,URINE 100 mg/dL (NEGATIVE); URINE SPECIFIC GRAVITY 1.025; UROBILINOGEN,URINE NEGATIVE mg/dL (<2.0)
[2020-06-08] MEDS ORDERED: TAMSULOSIN HCL 0.4 MG CAP.SR.24H PO ONE ×2 (01:53→04:47)
[2020-06-08] MEDS ORDERED: ONDANSETRON HCL INJ/PF 4 MG/2 ML SDV IV ONE (01:53)
[2020-06-08] MEDS ORDERED: HYDROMORPHONE HCL INJ/PF 2 MG/ML AMPULE IV ONE (01:53)
[2020-06-08] MEDS ORDERED: KETOROLAC TROMETHAMINE 60 MG/2 ML SDV IM ONE (02:01)
[2020-06-08] MEDS ORDERED: ONDANSETRON 4 MG TAB.RAPDIS PO ONE (02:01)
--- NOTE | 2020-06-08 02:06 | ER Document Report ---
ED Medical Screen (RME) - General Chief Complaint: Flank Pain Stated Complaint: FEVER Time Seen by Provider: 06/07/20 14:33 Primary Care Provider: ANUPAM,LIDIA [Primary Care Provider] - Follow up as needed Mode of Arrival: Ambulatory Information source: Patient Notes: The patient post acute care nurse practitioner approached me requesting that I consider discharging this individual. Patient is a 34-year-old male coming in today with right flank pain. He was seen approximately 13 hours ago in [facility]. Labs have resulted and his CT shows an 8 mm proximal right ureteral stone. Patient is still here has not had any of his medication. I have notified the charge nurse Courtney and she is working on getting him a bed. I have changed over his IV Toradol to IM Toradol and have given him an order for oral Zofran ODT tablet. There are still fluids, Dilaudid, and Flomax that need to be given. Patient is aware that we are looking for a bed. In the meantime the triage nurse will try to give the IM Toradol and 8 mg of Zofran. General exam nontoxic Abdomen nontender Neuro no focal deficits I have greeted and performed a rapid initial assessment of this patient. A comprehensive ED assessment and evaluation of the patient, analysis of test results and completion of the medical decision making process will be conducted by additional ED providers. TRAVEL OUTSIDE OF THE [place] IN LAST 30 DAYS: No - Related Data Allergies/Adverse Reactions: trazodone Allergy (Verified 09/03/19 10:42) Home Medications: clonodine. ropinorile Past Medical History - Social History Chew tobacco use (# tins/day): No Frequency of alcohol use: None Drug Abuse: None - Past Medical History Cardiac Medical History: Reports: Hx Hypertension Neurological Medical History: Reports: Hx Migraine Renal/ Medical History: Reports: Hx Kidney Stones. Denies: Hx Peritoneal Dialysis GI Medical History: Reports: Hx Gastroesophageal Reflux Disease Psychiatric Medical History: Reports: Hx Depression Past Surgical History: Reports: Hx Appendectomy, Hx Oral Surgery - Immunizations Hx Diphtheria, Pertussis, Tetanus Vaccination: Yes Physical Exam - Vital signs Vitals: Temp Pulse Resp BP Pulse Ox 99.1 F 92 20 155/80 H 100 06/07/20 13:56 06/07/20 13:56 06/07/20 13:56 06/07/20 13:56 06/07/20 13:56 Course - Vital Signs Vital signs: Temp Pulse Resp BP Pulse Ox 98.5 F 56 L 18 145/88 H 99 06/08/20 01:36 06/08/20 01:36 06/08/20 01:36 06/08/20 01:36 06/08/20 01:36 - Laboratory Result Diagrams: 06/07/20 14:55 06/07/20 14:55 Laboratory results interpreted by me: 06/07/20 06/07/20 06/07/20 14:55 14:55 20:00 WBC 10.7 H Chloride 112 H Carbon Dioxide 18 L Glucose 155 H Urine Protein 100 H Urine Blood LARGE H Ur Leukocyte Esterase TRACE H Urine Ascorbic Acid 20 H Doctor's Discharge - Discharge Referrals: [facility] [[facility]] - Follow up as needed
--- NOTE | 2020-06-08 03:46 | ER Document Report ---
ED General - General Chief Complaint: Flank Pain Stated Complaint: FEVER Time Seen by Provider: 06/07/20 14:33 Primary Care Provider: [facility] [Provider Group] - Follow up in 3-5 days [facility] [Primary Care [facility]] - Follow up as needed Mode of Arrival: Ambulatory TRAVEL OUTSIDE OF THE [place] IN LAST 30 DAYS: No - HPI Notes: 34 year old male to the ED with C/O right sided flank pain that started two days ago and has been persistent. Patient states he has a history of kidney stones, about one year ago and had to have a stent. Denies fahad hematuria, but does admit to "dark colored urine". States he has has subjective fevers, but denies measuring them. He has had a temperature Tmax of 99 here in the ER today. ADmits to NV. States he is feeling a little better after toradol and zofran from triage. He states that [facility] and was told to come to the ER. - Related Data Allergies/Adverse Reactions: trazodone Allergy (Verified 09/03/19 10:42) Home Medications: clonodine. ropinorile Past Medical History - General Information source: Patient - Social History Smoking Status: Current Some Day Smoker Chew tobacco use (# tins/day): No Frequency of alcohol use: None Drug Abuse: None Family History: Reviewed & Not Pertinent - Past Medical History Cardiac Medical History: Reports: Hx Hypertension Neurological Medical History: Reports: Hx Migraine Renal/ Medical History: Reports: Hx Kidney Stones. Denies: Hx Peritoneal Shirley lysis GI Medical History: Reports: Hx Gastroesophageal Reflux Disease Psychiatric Medical History: Reports: Hx Depression Past Surgical History: Reports: Hx Appendectomy, Hx Oral Surgery - Immunizations Hx Diphtheria, Pertussis, Tetanus Vaccination: Yes Review of Systems - Review of Systems Constitutional: Chills, Fever EENT: No symptoms reported Cardiovascular: denies: Chest pain, Palpitations, Heart racing, Dizziness, Lightheaded, Edema Respiratory: denies: Cough, Short of breath Gastrointestinal: Abdominal pain, Nausea, Vomiting Genitourinary: No symptoms reported Male Genitourinary: No symptoms reported Musculoskeletal: No symptoms reported Skin: No symptoms reported Hematologic/Lymphatic: No symptoms reported Neurological/Psychological: No symptoms reported -: Yes All other systems reviewed and negative Physical Exam - Vital signs Vitals: Temp Pulse Resp BP Pulse Ox 99.1 F 92 20 155/80 H 100 06/07/20 13:56 06/07/20 13:56 06/07/20 13:56 06/07/20 13:56 06/07/20 13:56 Interpretation: Hypertensive - General General appearance: Alert In distress: Moderate Notes: Moderate pain distress - HEENT Head: Normocephalic, Atraumatic Eyes: Normal Pupils: PERRL Pharynx: Normal Neck: Normal, Supple - Respiratory Respiratory status: No respiratory distress Chest status: Nontender Breath sounds: Normal. No: Rales, Rhonchi, Wheezing Chest palpation: Normal - Cardiovascular Rhythm: Regular Heart sounds: Normal auscultation Murmur: No - Abdominal Inspection: Obese Distension: No distension Bowel sounds: Normal Tenderness: Tender - There is tenderness to palpation to the right flank, right upper quadrant, right lower quadrant. Mild guarding. There is no rebound.. No : McBurney's point, Jeong's sign Organomegaly: No organomegaly - Back Back: Normal, Nontender, CVA tenderness - Right CVA tenderness - Neurological Neuro grossly intact: Yes Cognition: Normal Orientation: AAOx4 [place] Coma Scale Eye Opening: Spontaneous [place] Coma Scale Verbal: Oriented [place] Coma Scale Motor: Obeys Commands Lorraine Coma Scale Total: 15 Speech: Normal Cranial nerves: Normal Cerebellar coordination: Normal Motor strength normal: LUE, RUE, LLE, RLE Additional motor exam normals: Equal administrative representative Sensory: Normal - Psychological Associated symptoms: Normal affect, Normal mood - Skin Skin Temperature: Warm Skin Moisture: Dry Skin Color: Normal Course - Re-evaluation Re-evalutation: 06/08/20 Impression: Right-sided kidney stone. Patient has had much better pain control after Toradol and half a milligram of Dilaudid. He is no longer vomiting. He states that he would like to go home. I have asked him to follow-up with urology without fail outpatient. Will send home with pain medicines, antiemetics. He has not been febrile here. Urged to return if intractable pain, intractable nausea vomiting, fevers greater than 100.4. Patient agrees with the plan. - Vital Signs Vital signs: Temp Pulse Resp BP Pulse Ox 97.8 F 52 L 18 136/78 H 99 06/08/20 06:44 06/08/20 06:44 06/08/20 01:36 06/08/20 06:44 06/08/20 06:44 - Laboratory Result Diagrams: 06/07/20 14:55 06/07/20 14:55 Laboratory results interpreted by me: 06/07/20 06/07/20 06/07/20 14:55 14:55 20:00 WBC 10.7 H Chloride 112 H Carbon Dioxide 18 L Glucose 155 H Urine Protein 100 H Urine Blood LARGE H Ur Leukocyte Esterase TRACE H Urine Ascorbic Acid 20 H - Diagnostic Test Radiology reviewed: Image reviewed, Reports reviewed Discharge - Discharge Clinical Impression: Right flank pain, Right ureteral stone, Nausea & vomiting Condition: Stable Disposition: HOME, SELF-CARE Instructions: Kidney Stone ([facility]) Additional Instructions: Push fluids. Take medicine as prescribed. Return if worsening symptoms such as intractable pain, intractable vomiting, fevers greater than 100.4. Follow-up with the urologist without fail. Prescriptions: Ondansetron [Zofran Odt 4 mg Tablet] 1 - 2 tab PO Q4HP PRN #10 tab.rapdis PRN Reason: Oxycodone HCl/Acetaminophen [Percocet 5-325 mg Tablet] 1 - 2 tab PO Q4H PRN #15 tablet PRN Reason: Ketorolac Tromethamine [Toradol 10 mg Tablet] 10 mg PO TID #12 tablet Referrals: [facility] [Primary [facility]] - Follow up as needed [facility] [Provider Group] - Follow up in 3-5 days
[2020-06-08] MEDS ORDERED: HYDROMORPHONE HCL INJ/PF 2 MG/ML AMPULE ONE (04:48)
[2020-06-08] MEDS ORDERED: PROMETHAZINE HCL INJ 25 MG/1 ML VIAL ONE (04:48)
[2020-06-08 06:57] VITALS: BP 136/78
== END 2020-06-08 06:56 | disposition home or self-care (01) ==
LOC: ER 13:06
DX: N20.2 Calculus of kidney with calculus of ureter (principal); R11.2 Nausea with vomiting, unspecified; K76.0 Fatty (change of) liver, not elsewhere classified; I10 Essential (primary) hypertension; R68.83 Chills (without fever); F17.200 Nicotine dependence, unspecified, uncomplicated; Z90.49 Acquired absence of other specified parts of digestive tract; Z79.899 Other long term (current) drug therapy; Z88.8 Allergy status to other drugs, medicaments and biological substances
CPT/HCPCS: 99285; 96372; 36415; 87086; 85025; 80053; 81001; 74176; J1885; S0119

== ENCOUNTER 2020-06-22 16:16 | Emergency (ER) | payer OTHER, MEDICARE ==
[2020-06-22] MEDS ORDERED: ONDANSETRON 4 MG TAB.RAPDIS PO ONE (18:31)
[2020-06-22] MEDS ORDERED: HYDROCODONE/ACETAMINOPHEN 5-325 MG TABLET PO ONE (18:31)
--- NOTE | 2020-06-22 18:41 | ER Document Report ---
ED Medical Screen (RME) - General Chief Complaint: Flank Pain Stated Complaint: POSSIBLE KIDNEY STONE Time Seen by Provider: 06/22/20 18:21 Primary Care Provider: ANUPAM,LIDIA [Primary Care Provider] - Follow up as needed TRAVEL OUTSIDE OF THE [place] IN LAST 30 DAYS: No - HPI Notes: 06/22/20 18:41 34-year-old male presents to the emergency room today for right flank pain since June 08, 2020 that has become progressively worse. Reports he had an 8 mm stone in his right proximal ureter. He was discharged home with medication advised to follow-up with urology. Patient states he is waiting for callback from [facility] urolog. Reports today's pain is becoming progressively worse, 5 out of 5. Reports he has had nausea and vomited this morning and just before he came to triage. Denies any chest pain or shortness of breath. Does report fever and chills. Worse with time, nothing makes better. States he is having some dysuria with urination I have greeted and performed a rapid initial assessment of this patient. A comprehensive ED assessment and evaluation of the patient, analysis of test results and completion of the medical decision making process will be conducted by additional ED providers. PHYSICAL EXAMINATION: GENERAL: Well-appearing, well-nourished and in mild distress CV: s1, s2 regular LUNGS: No respiratory distress abd: R flank pain - Related Data Allergies/Adverse Reactions: trazodone Allergy (Verified 09/03/19 10:42) Past Medical History - Past Medical History Cardiac Medical History: Reports: Hx Hypertension Neurological Medical History: Reports: Hx Migraine Renal/ Medical History: Reports: Hx Kidney Stones. Denies: Hx Peritoneal Dialysis GI Medical History: Reports: Hx Gastroesophageal Reflux Disease Psychiatric Medical History: Reports: Hx Depression Past Surgical History: Reports: Hx Appendectomy, Hx Oral Surgery - Immunizations Hx Diphtheria, Pertussis, Tetanus Vaccination: Yes Physical Exam - Vital signs Vitals: Temp Pulse Resp BP Pulse Ox 98.4 F 79 20 146/91 H 98 06/22/20 16:32 06/22/20 16:32 06/22/20 16:32 06/22/20 16:32 06/22/20 16:32 Course - Vital Signs Vital signs: Temp Pulse Resp BP Pulse Ox 98.4 F 79 20 146/91 H 98 06/22/20 16:32 06/22/20 16:32 06/22/20 16:32 06/22/20 16:32 06/22/20 16:32 Doctor's Discharge - Discharge [facility]errals: [facility] [[facility]] - Follow up as needed
[2020-06-22] MEDS ORDERED: NORMAL SALINE 1000 ML 1,000 ML IV ONE (18:45)
[2020-06-22 18:52] LABS: ABSOLUTE BASOPHILS # (AUTO) 0.1 10^3/uL (0.0-0.2); ABSOLUTE EOSINOPHILS # (AUTO) 0.1 10^3/uL (0.0-0.6); ABSOLUTE LYMPHOCYTES (AUTO) 1.6 10^3/uL (0.5-4.7); ABSOLUTE MONOCYTES (AUTO) 1.6 10^3/uL (0.1-1.4); ABSOLUTE NEUT (AUTO) 12.6 10^3/uL (1.7-8.2); BASOPHILS % (AUTO) 0.5 % (0-2); EOSINOPHILS % (AUTO) 0.3 % (0-6); HEMOGLOBIN 16.5 g/dL (13.5-17.0); LYMPHOCYTES % (AUTO) 10.2 % (13-45); MEAN CORPUSCULAR HEMOGLOBIN 31.9 pg (27.0-33.4); MEAN CORPUSCULAR HGB CONC 34.5 g/dL (32.0-36.0); MEAN CORPUSCULAR VOLUME 93 fl (80-97); MONOCYTES % (AUTO) 10.1 % (3-13); PLATELET COUNT 216 10^3/uL (150-450); RED BLOOD COUNT 5.18 10^6/uL (4.35-5.55); RED CELL DISTRIBUTION WIDTH 13.3 % (11.5-14.0); SEGMENTED NEUTROPHILS % (AUTO) 78.9 % (42-78); TOTAL CELLS COUNTED % (AUTO) 100 %
[2020-06-22 19:09] LABS: ALBUMIN 4.8 g/dL (3.5-5.0); ALKALINE PHOSPHATASE 69 U/L (38-126); ANION GAP 14 (5-19); ASPARTATE AMINO TRANSFERASE 39 U/L (17-59); BILIRUBIN,TOTAL 0.5 mg/dL (0.2-1.3); BLOOD UREA NITROGEN 17 mg/dL (7-20); CARBON DIOXIDE 16 mmol/L (22-30); CHLORIDE 114 mmol/L (98-107); GLUCOSE 109 mg/dL (75-110)
--- NOTE | 2020-06-22 19:55 | RADIOLOGY REPORT (SQ) ---
EXAM DESCRIPTION: CT ABD/PELVIS NO ORAL OR IV IMAGES COMPLETED DATE/TIME: 06/22/2020 7:38 pm REASON FOR STUDY: hx of 8mm calculi on 06/08, + Flank pain COMPARISON: 06/07/2020, 09/03/2019, 07/05/2019, 07/01/2019 TECHNIQUE: CT scan of the abdomen and pelvis performed without intravenous or oral contrast. Images reviewed with lung, soft tissue, and bone windows. Reconstructed coronal and sagittal MPR images revi ewed. All images stored on PACS. All CT scanners at this facility use dose modulation, iterative reconstruction, and/or weight based d osing when appropriate to reduce radiation dose to as low as reasonably achievable (ALARA). [facility]: Dose Right [facility]: CareDose [facility]: Dose Right [facility]: Teradose 4D [facility]: [employer] RADIATION DOSE: CT Rad equipment meets quality standard of care and radiation dose reduction techniq ues were employed. CTDIvol: 18.9 mGy. DLP: 1054 mGy-cm.mGy. LIMITATIONS: None. FINDINGS: LOWER CHEST: No significant findings. No nodules or infiltrates. NON-CONTRASTED LIVER, SPLEEN, ADRENALS: Evaluation limited by lack of IV contrast. No identified sign ificant masses. Hepatic steatosis. PANCREAS: No masses. No peripancreatic inflammatory changes. GALLBLADDER: No identified stones by CT criteria. No inflammatory changes to suggest cholecystitis. RIGHT KIDNEY AND URETER: Re- demonstration of mild hydronephrosis and proximal ureterectasis on the b asis of a partially obstructing 6 x 4 x 8 mm proximal ureterolith which appears to be minimally progr essed in the study interval. LEFT KIDNEY AND URETER: No suspicious masses. Assessment limited by lack of IV contrast. No signifi cant calcifications. No hydronephrosis or hydroureter. AORTA AND RETROPERITONEUM: No aneurysm. No retroperitoneal masses or adenopathy. BOWEL AND PERITONEAL CAVITY: No obvious masses or inflammatory changes. No free fluid. APPENDIX: Surgically absent. PELVIS, BLADDER, AND ABDOMINAL WALL:No abnormal masses. No free fluid. Bladder normal. BONES: No significant findings. OTHER: No other significant finding. IMPRESSION: Re- demonstration of mild right-sided hydronephrosis and proximal ureterectasis on the b asis of a partially obstructing 6 x 4 x 8 mm proximal ureterolith which appears minimally progressed in the study interval. COMMENT: Quality ID # [id number]: Final reports with documentation of one or more dose reduction techniques (e.g., Automated exposure control, adjustment of the mA and/or kV according to patient size, use of iterative reconstruction technique) TECHNICAL DOCUMENTATION: JOB ID: [id number] 2010 [employer]- All Rights Reserved Reading location - IP/workstation name: [email or web address]
[2020-06-22] MEDS ORDERED: ONDANSETRON HCL INJ/PF 4 MG/2 ML SDV IV ONE ×2 (20:23→22:04)
[2020-06-22] MEDS ORDERED: HYDROMORPHONE HCL INJ/PF 2 MG/ML AMPULE IV ONE (20:23)
--- NOTE | 2020-06-22 20:26 | ER Document Report ---
ED General - General Chief Complaint: Flank Pain Stated Complaint: POSSIBLE KIDNEY STONE Time Seen by Provider: 06/22/20 18:21 [facility] Care Provider: [facility] [Primary Care Provider] - Follow up as needed TRAVEL OUTSIDE OF THE [place] IN LAST 30 DAYS: No - HPI Notes: Patient is a 34-year-old male with a history of kidney stones presents emergency department for evaluation of right-sided flank pain. He was diagnosed with a 6 x 4 x 8 mm ureteral stone here in this facility 2 weeks ago. He had mild associated right hydronephrosis. He was referred through the [place] [facility], he is still waiting to hear back. He states the pain has become unbearable over the last 24 hours. He does have some shaking chills of on occasion, but he attributes this to pain. No fahad fevers to his knowledge. He states he does get hot and cold at times, but is primarily when the pain comes on. He currently rates his pain a 9 out of 10. It is a sharp, cramping, colicky type pain. He does have some visible blood in his urine in the mornings. He has had 7 episodes of nonbloody, nonbilious emesis in the last 24 hours. Normal bowel movements. - Related Data Allergies/Adverse Reactions: trazodone Allergy (Verified 09/03/19 10:42) Home Medications: Depakote, ropinirole, acetazolamide, clonidine Past Medical History - General Information source: Patient - Social History Smoking Status: Current Some Day Smoker Chew tobacco use (# tins/day): No Frequency of alcohol use: None Drug Abuse: None Family History: Reviewed & Not Pertinent - Past Medical History Cardiac Medical History: Reports: Hx Hypertension Neurological Medical History: Reports: Hx Migraine, Other - Pseudotumor cerebri Endocrine Medical History: Reports: Hx Diabetes Mellitus Type 2 - Normal A1c at this time, without medication Renal/ Medical History: Reports: Hx Kidney Stones. Denies: Hx Peritoneal Dialysis GI Medical History: Reports: Hx Gastroesophageal Reflux Disease Psychiatric Medical History: Reports: Hx Anxiety, Hx Depression, Hx Post Traumatic Stress Disorder Past Surgical History: Reports: Hx Appendectomy, Hx Kidney (Renal Surgery) - stents placed, Hx Oral Surgery - Immunizations Hx Diphtheria, Pertussis, Tetanus Vaccination: Yes Review of Systems - Review of Systems Constitutional: See HPI EENT: No symptoms reported Cardiovascular: No symptoms reported Respiratory: No symptoms reported Gastrointestinal: See HPI Genitourinary: See HPI Musculoskeletal: No symptoms reported Skin: No symptoms reported Neurological/Psychological: No symptoms reported -: Yes All other systems reviewed and negative Physical Exam - Vital signs Vitals: Temp Pulse Resp BP Pulse Ox 98.4 F 79 20 146/91 H 98 06/22/20 16:32 06/22/20 16:32 06/22/20 16:32 06/22/20 16:32 06/22/20 16:32 - Notes Notes: This is a 34-year-old male who appears his stated age, in a mild amount of distress. He is visibly uncomfortable, braces himself and the pain becomes severe. Vital signs reviewed, please refer to chart. Head is normocephalic, atraumatic. Pupils equal round, reactive to light. Neck is supple without meningismus. Heart is regular rate and rhythm. Lungs are clear to auscultation bilaterally. Abdomen is soft, mildly tender in the right lower quadrant without rebound or guarding, normoactive bowel sounds throughout. CVA tenderness noted on the right. Extremities without cyanosis, clubbing. Posterior calves are nontender. Peripheral pulses are equal. Skin is warm and dry. Patient is awake, alert, neurological exam is nonfocal. Course - Re-evaluation Re-evalutation: 06/22/20 20:26 Patient presents emergency department for evaluation. He has continued flank pain after being diagnosed with a rather large kidney stone [address] scan shows little in the way of progression of the stone. Laboratory investigations show a mild bump in his renal function as well as leukocytosis. I am still awaiting urinalysis. I am concerned about the possibility of a septic stone at this time. Patient will be medicated with Dilaudid, Zofran. He is already received IV fluids, Zofran, [place]. We will continue to monitor for response. 06/22/20 22:05 Patient feeling somewhat improved, still nauseated but his pain is improved significantly. I will given further Zofran. He does have a significant leukocytosis. His urinalysis shows large blood without any overt signs of infection. Given the size of his stone, the relative lack of progress in movement of the stone, and the patient still awaiting urology referral, I will consult with [facility] urological services. Awaiting phone call. 06/22/20 22:[address] Wade, on-call urologist at [facility]. We discussed this case at length. He states he does not necessarily think that antibiotics are required, but thought that being cautious with the addition of antibiotics was not unreasonable. He recommends Keflex if that is what the decision is. He states he should also be checking his temperature daily at home and returning immediately if he develops a fever. I will pass this along to the patient. I will send him home with pain medication, nausea medication, Keflex, Flomax. He is to return the emergency department with worsening or new concerning symptoms of any sort. - Vital Signs Vital signs: Temp Pulse Resp BP Pulse Ox 98.7 F 79 17 114/86 H 99 06/22/20 22:01 06/22/20 16:32 06/22/20 22:01 06/22/20 22:01 06/22/20 22:01 - Laboratory Result Diagrams: 06/22/20 18:40 06/22/20 18:40 Laboratory results interpreted by me: 06/22/20 06/22/20 06/22/20 18:40 18:40 21:00 WBC 16.0 H Lymph % (Auto) 10.2 L Absolute Neuts (auto) 12.6 H Absolute Monos (auto) 1.6 H Seg Neutrophils % 78.9 H Chloride 114 H Carbon Dioxide 16 L Creatinine 1.48 H Est GFR (MDRD) Non-Af 54 L Urine Protein >=500 H Urine Ketones 20 H Urine Blood LARGE H Urine Ascorbic Acid 40 H - Diagnostic Test Radiology reviewed: Reports reviewed Radiology results interpreted by me: 06/22/20 20:26 Abdomen/Pelvis CT 06/22/20 18:30 IMPRESSION: Re- demonstration of mild right-sided hydronephrosis and proximal ureterectasis on the basis of a partially obstructing 6 x 4 x 8 mm proximal ureterolith which appears minimally progressed in the study interval. Discharge - Discharge Clinical Impression: Ureterolithiasis Hydronephrosis Qualifiers: Hydronephrosis type: with ureteral calculous obstruction Qualified Code(s): N13.2 - Hydronephrosis with renal and ureteral calculous obstruction Condition: Stable Disposition: HOME, SELF-CARE Instructions: Kidney Stone ([facility]) Additional Instructions: You continue to have a kidney stone. It has not moved significantly. You will be sent home with pain medicine, nausea medicine, Flomax. Please watch for dizziness, specifically when standing with the Flomax. You are being prophylactically started on antibiotics. It is very important that you check your temperature daily at home and return immediately to the ED if you develop a fever. Otherwise if you develop uncontrolled vomiting, uncontrolled pain, or any other new or concerning symptoms, please return immediately to the ED for further evaluation. [email or web address] [address] [place] [address] Kory De La Rosa Mcconnell Referrals: [facility] [Primary Care Provider] - Follow up as needed
[2020-06-22 21:40] LABS: APPEARANCE,URINE SLIGHTLY-CLOUDY; BILIRUBIN,URINE NEGATIVE (NEGATIVE); CALCIUM OXALATE CRYSTALS,URINE FEW /HPF; COLOR,URINE YELLOW; GLUCOSE, URINE NEGATIVE (NEGATIVE); KETONES,URINE 20 mg/dL (NEGATIVE); LEUKOCYTE ESTERASE,URINE NEGATIVE (NEGATIVE); NITRITE,URINE NEGATIVE (NEGATIVE); PROTEIN,URINE >=500 mg/dL (NEGATIVE); URINE SPECIFIC GRAVITY 1.029; UROBILINOGEN,URINE NEGATIVE mg/dL (<2.0)
[2020-06-22] MEDS ORDERED: CEPHALEXIN 500 MG CAPSULE PO ONE (22:21)
[2020-06-22] MEDS ORDERED: HYDROCODONE/ACETAMINOPHEN 5-325 MG (6 TAB/ER DISP) PO PRN (22:24)
[2020-06-22] MEDS ORDERED: ONDANSETRON ODT 4 MG TAB (6 TAB/ER DISP) PO PRN (22:24)
[2020-06-22] MEDS ORDERED: TAMSULOSIN HCL 0.4 MG CAP.SR.24H PO ONE (22:25)
[2020-06-22 23:05] VITALS: BP 131/76
== END 2020-06-22 23:10 | disposition home or self-care (01) ==
LOC: ER 16:16
DX: N13.2 Hydronephrosis with renal and ureteral calculous obstruction (principal); R31.0 Gross hematuria; R68.83 Chills (without fever); I10 Essential (primary) hypertension; R11.2 Nausea with vomiting, unspecified; F17.200 Nicotine dependence, unspecified, uncomplicated; E11.9 Type 2 diabetes mellitus without complications; Z79.899 Other long term (current) drug therapy; Z88.8 Allergy status to other drugs, medicaments and biological substances
CPT/HCPCS: 99285; 96361; 96374; 96375; 36415; 87086; 83690; 85025; 80053; 81001; 74176; S0119; J1170; J2405; J7030

== ENCOUNTER 2020-06-24 08:24 | Emergency (ER) | payer OTHER, MEDICARE ==
[2020-06-24 09:47] LABS: APPEARANCE,URINE SLIGHTLY-CLOUDY; BILIRUBIN,URINE NEGATIVE (NEGATIVE); CALCIUM OXALATE CRYSTALS,URINE MODERATE /HPF; COLOR,URINE AMBER; GLUCOSE, URINE NEGATIVE (NEGATIVE); KETONES,URINE 20 mg/dL (NEGATIVE); LEUKOCYTE ESTERASE,URINE MODERATE (NEGATIVE); NITRITE,URINE NEGATIVE (NEGATIVE); PROTEIN,URINE 100 mg/dL (NEGATIVE); URINE SPECIFIC GRAVITY 1.027
[2020-06-24 10:02] LABS: ABSOLUTE LYMPHOCYTES (AUTO) 1.5 10^3/uL (0.5-4.7); ABSOLUTE MONOCYTES (AUTO) 1.2 10^3/uL (0.1-1.4); ABSOLUTE NEUT (AUTO) 11.8 10^3/uL (1.7-8.2); BASOPHILS % (AUTO) 0.3 % (0-2); EOSINOPHILS % (AUTO) 0.2 % (0-6); HEMATOCRIT 44.2 % (37.9-51.0); HEMOGLOBIN 15.4 g/dL (13.5-17.0); LYMPHOCYTES % (AUTO) 10.5 % (13-45); MEAN CORPUSCULAR HEMOGLOBIN 32.2 pg (27.0-33.4); MEAN CORPUSCULAR HGB CONC 34.9 g/dL (32.0-36.0); MEAN CORPUSCULAR VOLUME 93 fl (80-97); MONOCYTES % (AUTO) 8.3 % (3-13); PLATELET COUNT 185 10^3/uL (150-450); RED BLOOD COUNT 4.78 10^6/uL (4.35-5.55); RED CELL DISTRIBUTION WIDTH 13.2 % (11.5-14.0); SEGMENTED NEUTROPHILS % (AUTO) 80.7 % (42-78); TOTAL CELLS COUNTED % (AUTO) 100 %; WHITE BLOOD COUNT 14.6 10^3/uL (4.0-10.5)
[2020-06-24 10:17] LABS: ALBUMIN 4.4 g/dL (3.5-5.0); ALKALINE PHOSPHATASE 59 U/L (38-126); ANION GAP 11 (5-19); ASPARTATE AMINO TRANSFERASE 39 U/L (17-59); BILIRUBIN,DIRECT 0.1 mg/dL (0.0-0.4); BILIRUBIN,TOTAL 0.6 mg/dL (0.2-1.3); BLOOD UREA NITROGEN 17 mg/dL (7-20); CALCIUM 9.8 mg/dL (8.4-10.2); CARBON DIOXIDE 21 mmol/L (22-30); CHLORIDE 109 mmol/L (98-107); GLUCOSE 110 mg/dL (75-110); POTASSIUM 3.7 mmol/L (3.6-5.0); TOTAL PROTEIN 7.4 g/dL (6.3-8.2)
[2020-06-24] MEDS ORDERED: HYDROMORPHONE HCL INJ/PF 2 MG/ML AMPULE IV ONE ×2 (10:20→12:35)
[2020-06-24] MEDS ORDERED: NORMAL SALINE 500 ML IV ONE (10:20)
[2020-06-24] MEDS ORDERED: ONDANSETRON HCL INJ/PF 4 MG/2 ML SDV IV ONE ×2 (10:21→12:34)
--- NOTE | 2020-06-24 10:34 | ER Document Report ---
ED GI/ - General Chief Complaint: Possible Kidney Stone Stated Complaint: VOMITING/CHILLS/KIDNEY PAIN Time Seen by Provider: 06/24/20 10:04 Primary Care Provider: [facility] [Primary Care Provider] - Follow up as needed TRAVEL OUTSIDE OF THE [place].S. IN LAST 30 DAYS: No - HPI Notes: 06/24/20 10:28 Patient is a 34-year-old male with a past medical history of restless leg syndrome and pseudotumor cerebri who presents with right flank pain. Patient was in the ER on 06/07 and diagnosed with a 6 x 4 x 8 mm kidney stone. He had good pain control at that time and was discharged home with urology follow-up. Patient returned to the ER on 06/22 with worsening pain. The provider called [facility] to follow-up with them. They recommended sending him home on Keflex and having him follow-up outpatient. At that time, repeat CT scan showed minimal progression of the stone. He returns again today for worsening right flank pain. He states he has vomited 15 times this morning. The pain is uncontrollable. He has taken hydrocodone and Zofran without any relief. He denies any fevers or chills. He states he occasionally has some dysuria. He has not been able to fill his Keflex prescription because the CT has not sent it yet. He states he called the urologist at [facility] for an appointment but they stated they did not receive his information from the CT yet. He called the CT who stated that they did send the information. - Related Data Allergies/Adverse Reactions: trazodone Allergy (Verified 06/24/20 09:33) Past Medical History - General Information source: Patient - Social History Smoking Status: Current Some Day Smoker Family History: Reviewed & Not Pertinent - Past Medical History Cardiac Medical History: Reports: Hx Hypertension Neurological Medical History: Reports: Hx Migraine Endocrine Medical History: Reports: Hx Diabetes Mellitus Type 2 - Normal A1c at this time, without medication Renal/ Medical History: Reports: Hx Kidney Stones. Denies: Hx Peritoneal Dialysis GI Medical History: Reports: Hx Gastroesophageal Reflux Disease Psychiatric Medical History: Reports: Hx Anxiety, Hx Depression, Hx Post Traumatic Stress Disorder Past Surgical History: Reports: Hx Appendectomy, Hx Kidney (Renal Surgery) - stents placed, Hx Oral Surgery - Immunizations Hx Diphtheria, Pertussis, Tetanus Vaccination: Yes Review of Systems - Review of Systems Notes: CONSTITUTIONAL: No fever, fatigue or weight loss. SKIN: No rash. HENT: No congestion, ear pain, or sore throat. EYES: No recent vision problems or eye pain. CARDIOVASCULAR: No chest pain or edema. RESPIRATORY: No cough, shortness of breath, congestion, or wheezing. GASTROINTESTINAL: Positive for right flank pain radiating into the right lower quadrant. Positive for nausea and vomiting. GENITOURINARY: Occasional dysuria. MUSCULOSKELETAL: No joint pain or swelling. NEUROLOGIC: No seizures. No headache, focal weakness or sensory changes. HEMATOLOGIC: No unusual bruising or bleeding. PSYCHIATRIC: No depression or anxiety. Physical Exam - Vital signs Vitals: Temp Pulse Resp BP Pulse Ox 97.8 F 65 18 133/75 H 100 06/24/20 08:32 06/24/20 08:32 06/24/20 08:32 06/24/20 08:32 06/24/20 08:32 - General General appearance: Other - Appears uncomfortable due to pain In distress: Mild Notes: VITAL SIGNS: Within normal limits. GENERAL: No acute distress, non-toxic appearance. HEAD: Normal with no signs of head trauma. EARS: Hearing grossly intact. NECK: Normal range of motion, no tenderness, supple, no lymphadenopathy, No adenopathy, no JVD. CHEST: Clear breath sounds bilaterally. No wheezes, rales, or rhonchi. CARDIAC: Regular rate and rhythm. S1 and S2, without murmurs, gallops, or rubs. VASCULAR: No Edema. ABDOMEN: Normal and soft. Right flank discomfort to palpation. GENITOURINARY: Normal, No tenderness MUSCULOSKELETAL: Good range of motion of all major joints. Extremities without clubbing, cyanosis or edema. NEUROLOGICAL: Alert and oriented x 3. No focal sensory or strength deficits. Speech normal. Follows commands appropriately. PSYCHIATRIC: Normal Affect, judgement and mood. SKIN: Normal appearance with no rashes or lesions. Course - Re-evaluation Re-evalutation: 06/24/20 12:35 Patient had 2 CAT scans already. His last CT scan was on 06/22 which showed minimal progression of his kidney stone. He was in significant pain upon arrival. He states he has been vomiting numerous times today and cannot control his pain with the narcotics that were prescribed to him. I repeated labs. He still has a leukocytosis. No significant evidence of any infection on his urinalysis. He is afebrile. I first called urology at [facility], Dr. Powers, who stated that this patient does not need to be stented this weekend. He stated he could follow-up in the office. I reassessed the patient and he is s till in significant pain. I then called [facility] and spoke with Dr. Cazares, the urologist, who agreed to admit the patient and likely stent him tomorrow. I also discussed with Dr. Fair who is the hospitalist at [facility] and will be the admitting physician. Patient is very agreeable to this plan. He is still requiring repeat pain and nausea medications. He is stable at time of transfer. 06/24/20 18:44 - Vital Signs Vital signs: Temp Pulse Resp BP Pulse Ox 98.3 F 55 L 18 140/71 H 99 06/24/20 14:06 06/24/20 14:06 06/24/20 14:06 06/24/20 14:06 06/24/20 14:06 - Laboratory Result Diagrams: 06/24/20 09:46 06/24/20 09:46 Laboratory results interpreted by me: 06/24/20 06/24/20 06/24/20 09:15 09:46 09:46 WBC 14.6 H Lymph % (Auto) 10.5 L Absolute Neuts (auto) 11.8 H Seg Neutrophils % 80.7 H Chloride 109 H Carbon Dioxide 21 L Creatinine 1.46 H Est GFR (MDRD) Non-Af 55 L Urine Protein 100 H Urine Ketones 20 H Urine Blood LARGE H Urine Urobilinogen 2.0 H Ur Leukocyte Esterase MODERATE H Urine Ascorbic Acid 40 H Discharge - Discharge Clinical Impression: Ureteral calculus, right Condition: Stable Disposition: [facility] [Primary [facility]] - Follow up as needed
[2020-06-24] MEDS ORDERED: NORMAL SALINE 1000 ML 1,000 ML IV ONE (12:43)
[2020-06-24 14:06] VITALS: BP 140/71
== END 2020-06-24 15:14 | disposition short-term general hospital (02) ==
LOC: ER 08:24
DX: N20.1 Calculus of ureter (principal); R10.9 Unspecified abdominal pain; G25.81 Restless legs syndrome; I10 Essential (primary) hypertension; F17.200 Nicotine dependence, unspecified, uncomplicated
CPT/HCPCS: 96376; 99285; 96361; 96374; 96375; 36415; 83690; 85025; 80053; 81001; J1170; J2405; J7030; J7040